=== PATIENT | female | born 1945 | race Caucasian/White ===

== ENCOUNTER 2016-09-24 02:56 | Emergency (ER) | payer OTHER, MEDICARE ==
[~2016-09-24] VITALS: Ht 167.6 cm; Wt 83.9 kg
[~2016-09-24 02:56] MED LIST: ASPI-1063 PO; INSU10VI4 SUBCUT; LOSA100T11 PO; METO25TA3 PO
[2016-09-24 03:01] VITALS: BP_SYST 142
[2016-09-24] MEDS ORDERED: TETRACAINE HCL 0.5% OPHTHALMIC DROPS 15 ML OP ONE (04:11)
[2016-09-24 05:27] VITALS: BP_SYST 135
== END 2016-09-24 05:27 | disposition home or self-care (01) ==
LOC: SED 02:56
DX: S05.01XA Injury of conjunctiva and corneal abrasion without foreign body, right eye, initial encounter (principal); E11.9 Type 2 diabetes mellitus without complications; I10 Essential (primary) hypertension; E78.00 Pure hypercholesterolemia, unspecified; Z86.73 Personal history of transient ischemic attack (TIA), and cerebral infarction without residual deficits; Z79.4 Long term (current) use of insulin; Z88.5 Allergy status to narcotic agent; Z88.1 Allergy status to other antibiotic agents; Z88.8 Allergy status to other drugs, medicaments and biological substances; X58.XXXA Exposure to other specified factors, initial encounter; Y93.89 Activity, other specified; Y92.89 Other specified places as the place of occurrence of the external cause; Y99.8 Other external cause status
CPT/HCPCS: 99283

== ENCOUNTER 2016-09-24 22:32 | Emergency (ER) | payer OTHER, MEDICARE ==
[~2016-09-24] VITALS: Ht 167.6 cm; Wt 83.9 kg
[2016-09-24 22:43] VITALS: BP_SYST 137
[2016-09-25 00:32] VITALS: BP_SYST 129
== END 2016-09-25 00:32 | disposition home or self-care (01) ==
LOC: SED 22:33
DX: S05.01XD Injury of conjunctiva and corneal abrasion without foreign body, right eye, subsequent encounter (principal); E11.9 Type 2 diabetes mellitus without complications; I10 Essential (primary) hypertension; E78.00 Pure hypercholesterolemia, unspecified; Z79.4 Long term (current) use of insulin; Z79.82 Long term (current) use of aspirin; Z88.1 Allergy status to other antibiotic agents; Z88.8 Allergy status to other drugs, medicaments and biological substances; W50.0XXD Accidental hit or strike by another person, subsequent encounter
CPT/HCPCS: 99283

== ENCOUNTER 2016-09-28 18:36 | Emergency (ER) | payer OTHER, MEDICARE ==
[~2016-09-28] VITALS: Ht 167.6 cm; Wt 81.6 kg
[2016-09-28 18:40] VITALS: BP_SYST 138
[2016-09-28 19:55] VITALS: BP_SYST 138
== END 2016-09-28 19:55 | disposition home or self-care (01) ==
LOC: SED 18:36
DX: S05.01XD Injury of conjunctiva and corneal abrasion without foreign body, right eye, subsequent encounter (principal); E78.00 Pure hypercholesterolemia, unspecified; E11.9 Type 2 diabetes mellitus without complications; I10 Essential (primary) hypertension; Z86.73 Personal history of transient ischemic attack (TIA), and cerebral infarction without residual deficits; Z79.4 Long term (current) use of insulin; Z79.82 Long term (current) use of aspirin; Z88.8 Allergy status to other drugs, medicaments and biological substances; Z88.5 Allergy status to narcotic agent; Z88.1 Allergy status to other antibiotic agents; W50.0XXD Accidental hit or strike by another person, subsequent encounter
CPT/HCPCS: 99283

== ENCOUNTER 2016-12-12 15:34 | Emergency (ER) | payer OTHER, MEDICARE ==
[~2016-12-12] VITALS: Ht 167.6 cm; Wt 81.6 kg
--- NOTE | 2016-12-12 15:50 | NUR ---
Pt to bed 6, placed in gown for evaluation
[2016-12-12 15:54] VITALS: BP_SYST 158
--- NOTE | 2016-12-12 16:00 | NUR ---
Patient to ED for evaluation of rlq abd pain and flank pain x 2 days. Patient able to ambulate to bed 6 with slow, steady gait. Awaiting evaluation by ER MD-will continue to observe and assess.
--- NOTE | 2016-12-12 16:05 | NUR ---
DR KRUEGER AT BEDSIDE TO EVALUATE PATIENT.
--- NOTE | 2016-12-12 16:20 | NUR ---
Ambulatory to restroom
[2016-12-12 16:25] LABS: BASOPHILS # (AUTO) 0.1 K/uL (0.0-0.2); BASOPHILS % (AUTO) 0.7 % (0.0-2.0); EOSINOPHILS # (AUTO) 0.3 K/uL (0.0-0.4); EOSINOPHILS % (AUTO) 3.6 % (0.0-4.0); HEMATOCRIT 39.4 % (36-48); HEMOGLOBIN 13.2 g/dL (12.0-16.0); LYMPHOCYTES % (AUTO) 26.4 % (20.5-51.5); MEAN CORPUSCULAR HEMOGLOBIN 30 pg (27-31); MEAN CORPUSCULAR HGB CONC 34 % (32-36); MEAN CORPUSCULAR VOLUME 89 fL (79.0-98.0); MONOCYTES # (AUTO) 0.6 K/uL (0.0-1.0); MONOCYTES % (AUTO) 8.1 % (1.7-9.3); NEUTROPHILS # (AUTO) 4.4 K/uL (1.8-7.7); NEUTROPHILS % (AUTO) 61.2 % (40.0-70.0); PLATELET COUNT (AUTO) 288 K/uL (130-430); RED BLOOD CELL COUNT(AUTO) 4.43 MIL/uL (4.2-6.2); RED CELL DISTRIBUTION WIDTH 12.6 % (9.0-15.0); WHITE BLOOD COUNT (AUTO) 7.4 K/uL (4.8-10.8)
[2016-12-12 16:30] LABS: PROTHROMBIN TIME 10.5 SECS (9.5-12.5)
[2016-12-12 16:38] LABS: BILIRUBIN,URINE NEGATIVE (NEGATIVE); BLOOD, URINE NEGATIVE (NEGATIVE); CLARITY/URINE CLEAR (CLEAR); COLOR,URINE STRAW (YELLOW); GLUCOSE,URINE NEGATIVE (NEGATIVE); KETONES,URINE NEGATIVE (NEGATIVE); LEUKOCYTE ESTERASE ,URINE NEGATIVE (NEGATIVE); NITRITE, URINE NEGATIVE (NEGATIVE); PROTEIN URINE NEGATIVE (NEGATIVE); UROBILINOGEN,URINE 0.2 (0.2-1.0)
[2016-12-12 16:42] LABS: ALBUMIN 3.2 g/dL (3.4-4.8); CALCIUM 8.6 mg/dL (8.4-11.0); CREATININE 0.82 mg/dL (0.55-1.30); TOTAL BILIRUBIN 0.4 mg/dL (0.0-1.0)
[2016-12-12] MEDS ORDERED: HYDROmorphone 1 MG INJ. 1 MG/ML AMPUL IVP ONE (16:45)
[2016-12-12] MEDS ORDERED: ONDANSETRON HCL 4 MG/2 ML VIAL IVP ONE (16:45)
--- NOTE | 2016-12-12 16:55 | NUR ---
Attempted to place IV without success, second RN at bedside to attempt IV placement. Will medicate once IV is placed.
--- NOTE | 2016-12-12 17:20 | NUR ---
Second RN unable to place IV-charge account clerk notified, and will attempt to place IV.
[2016-12-12] MEDS ORDERED: KETOROLAC TROMETHAMINE 30 MG VIAL IVP ONE (18:00)
--- NOTE | 2016-12-12 18:47 | NUR ---
Dr Lincoln at bedside to re-evaluate patient.
[2016-12-12] MEDS ORDERED: MAGNESIUM CITRATE 300 ML ORAL SOLUTION PO ONE (19:00)
--- NOTE | 2016-12-12 19:15 | NUR ---
Patient given written and verbal discharge instructions and verbalizes understanding. ER MD discussed with patient the results and treatment provided. Patient in stable condition. ID arm band removed. IV catheter removed intact and dressing applied, no active bleeding. No RX given. Patient educated on pain management and to follow up with PMD. Pain Scale 3. Opportunity for questions provided and answered.
[2016-12-12 19:52] VITALS: BP_SYST 140
== END 2016-12-12 19:15 | disposition home or self-care (01) ==
LOC: SED 15:34
DX: K59.00 Constipation, unspecified (principal); E11.9 Type 2 diabetes mellitus without complications; I10 Essential (primary) hypertension; E78.00 Pure hypercholesterolemia, unspecified; Z86.73 Personal history of transient ischemic attack (TIA), and cerebral infarction without residual deficits; Z79.82 Long term (current) use of aspirin; Z88.5 Allergy status to narcotic agent; Z88.8 Allergy status to other drugs, medicaments and biological substances; Z79.4 Long term (current) use of insulin
CPT/HCPCS: 36415; 71010; 74176; 80053; 81003; 83605; 83690; 85025; 85610; 87040; 93005; 96374; 96375; 99285; J1170; J1885; J2405

== ENCOUNTER 2017-11-06 04:27 | Inpatient (IN) | payer OTHER, MEDICARE ==
[~2017-11-06] VITALS: Ht 170.2 cm; Wt 88.9 kg
[~2017-11-06 04:27] MED LIST changes: -ASPI-1063 PO; +ASPI-1153 PO; -LOSA100T11 PO; +LOSA100T3 PO
--- NOTE | 2017-11-06 04:32 | NUR ---
Patient to ER bed 7 to gown for evaluation. Side rails up.
--- NOTE | 2017-11-06 04:34 | NUR ---
Patient ambulatory to ED and assisted to wheelchair with c/o subternal chest pain x 3 hours. Reports sharp non-radiating pain that has not been relieved with rest. +SOB. Patient speaking full sentences. No increased work of breathing. +N; -V/D. Patient appears in acute distress. Afebrile. Patient A/O x 4. Family at bedside.
[2017-11-06 04:35] VITALS: BP_SYST 139
--- NOTE | 2017-11-06 04:40 | NUR ---
ER Dr. Wheeler at bedside examining patient.
[2017-11-06] MEDS ORDERED: HYDROmorphone 1 MG INJ. 1 MG/ML AMPUL IVP ONE (05:00)
[2017-11-06] MEDS ORDERED: ASPIRIN 325 MG TABLET (ECOTRIN) PO ONE (05:00)
[2017-11-06] MEDS ORDERED: NITROGLYCERIN 0.3 MG/HR TD ONE (05:00)
[2017-11-06] MEDS ORDERED: ASPIRIN 325 MG TABLET PO ONE (05:00)
--- NOTE | 2017-11-06 05:00 | NUR ---
# 22 gauge angiocath placed to left upper arm. Use of asceptic technique. Opsite placed over site. Blood return noted. Blood for lab drawn from site. Flushed with 10 cc of normal saline. No evidence of infiltration noted. Patient tolerated well.
[2017-11-06] MEDS ORDERED: INSU100V9 SQ (05:04)
[2017-11-06] MEDS ORDERED: INSU100V SQ (05:04)
--- NOTE | 2017-11-06 05:04 | NUR ---
Medication reconciliation completed with information provided by patient. Any prior medication reconciliation on file was reviewed and corrected.
[2017-11-06] MEDS ORDERED: NITROGLYCERIN 1 INCH (GM) OINT. TP ONE (05:15)
[2017-11-06 05:16] LABS: BASOPHILS # (AUTO) 0.1 K/uL (0.0-0.2); BASOPHILS % (AUTO) 1.4 % (0.0-2.0); EOSINOPHILS # (AUTO) 0.3 K/uL (0.0-0.4); HEMATOCRIT 38.8 % (36-48); HEMOGLOBIN 13.2 g/dL (12.0-16.0); LYMPHOCYTES # (AUTO) 1.8 K/uL (1.0-5.5); LYMPHOCYTES % (AUTO) 23.7 % (20.5-51.5); MEAN CORPUSCULAR HEMOGLOBIN 31 pg (27-31); MEAN CORPUSCULAR HGB CONC 34 % (32-36); MEAN CORPUSCULAR VOLUME 90 fL (79.0-98.0); MONOCYTES # (AUTO) 0.5 K/uL (0.0-1.0); NEUTROPHILS # (AUTO) 4.9 K/uL (1.8-7.7); NEUTROPHILS % (AUTO) 63.9 % (40.0-70.0); PLATELET COUNT (AUTO) 310 K/uL (130-430); RED CELL DISTRIBUTION WIDTH 12.3 % (9.0-15.0); WHITE BLOOD COUNT (AUTO) 7.6 K/uL (4.8-10.8)
[2017-11-06] MEDS ORDERED: NITROGLYCERIN 1 INCH (GM) OINT. ONE (05:16)
--- NOTE | 2017-11-06 05:30 | NUR ---
Patient is calmly resting at this time. Patient states mild pain is present to chest but states "I feel better from before". No signs of distress noted at this time. Will continue to monitor the patient.
[2017-11-06 05:32] LABS: ANION GAP 7 (5-15); CALCIUM 9.1 mg/dL (8.4-11.0); CHLORIDE 103 mmol/L (98-107); GLUCOSE 173 mg/dL (70-99); SODIUM SERUM 137 mmol/L (136-145); UREA NITROGEN, BLOOD 12 mg/dL (8-21)
[2017-11-06 05:36] LABS: ALANINE AMINOTRANSFERASE 32 U/L (12-78); ALBUMIN 3.7 g/dL (3.4-4.8); ASPARTATE AMINOTRANSFERASE 25 U/L (10-37); TOTAL BILIRUBIN 0.3 mg/dL (0.0-1.0)
[2017-11-06] MEDS ORDERED: NITROGLYCERIN 0.4 MG TAB.SUBL SL PRN ×2 (06:15→08:30)
--- NOTE | 2017-11-06 06:18 | NUR ---
Patient will be admitted to care of Dr. Ruano. Admitted to tele unit. Will go to room 111A. Belongings list completed. Summary report printed. Report given to Sunita AWAN at bedside.
--- NOTE | 2017-11-06 06:24 | NUR ---
ADMISSION: The patient, FOSTER ANDERSON, 72 y/o, F admitted by MAGALY MENDOZA MD, was given written information regarding hospital policies, unit procedures and contact persons. Valuables were checked and pt was oriented to her room and surrounding.
--- NOTE | 2017-11-06 06:30 | NUR ---
CONSULTATION PAGED/CALLED Reason for Consultation: [] CHEST PAIN Person Who was Notified: [] RAFY Consulting Physician: [] DR SWARTZ Archivist Specialty: [] CARDIOLOGY Ordering Physician: [] DR Matthew MENDOZA
[2017-11-06 06:34] VITALS: BP_SYST 143
--- NOTE | 2017-11-06 07:25 | NUR ---
Report Bedside report was given to day shift nurse.
--- NOTE | 2017-11-06 07:40 | NUR ---
INITIAL NOTE RECEIVED PT IN BED, NO S/S OF DISTRESS OR SOB NOTED, PT HAS NO C/O PAIN AT THIS TIME, PT IN STABLE CONDITION, PT AAOX4, VERBAL, PT HAS AN IV CATHETER, PATENT, NO SIGNS OF INFECTION OR INFILTRATION NOTED, SALINE LOCK, BED AT LOWEST POSITION, CALL LIGHT WITHIN REACH, WILL CONTINUE TO MONITOR PT FOR ANY CHANGES, FALL AND SAFETY PRECAUTIONS IN PLACE. PT HAS NO C/O CHEST PAIN AT THIS TIME.
[2017-11-06 07:42] VITALS: BP_SYST 130
--- NOTE | 2017-11-06 07:43 | NUR ---
CALL DR KELLY NICK TO NOTIFY THAT PT IS HAVING PAIN AND NO PAIN MEDICATIONS ARE ORDERED, AWAITING CALL BACK. Addendum: 11/06/17 at 0811 by Carmen Mcginnis RN CALLED BACK AND STATED HE WILL COME IN AND SEE PT AND WRITE ORDERS
[2017-11-06] MEDS ORDERED: KETOROLAC TROMETHAMINE 15 MG VIAL IM ONE (08:30)
[2017-11-06] MEDS ORDERED: INSULIN REGULAR, HUMAN 100 UNITS/ML, 10 ML VIAL (novoLIN R) SUBCUT PRN (08:30)
[2017-11-06] MEDS ORDERED: KETOROLAC TROMETHAMINE 15 MG VIAL IVP PRN (08:30)
[2017-11-06] MEDS ORDERED: ALPRAZolam 0.25 MG TABLET PO PRN (08:45)
[2017-11-06] MEDS ORDERED: INSULIN ASPART 100 UNITS/ML, 10 ML VIAL SQ SCH (09:00)
[2017-11-06] MEDS ORDERED: COMMUNICATION ORDER XX ONE (09:15)
[2017-11-06] MEDS: ASPIRIN 81 MG TABLET(ECOTRIN) PO SCH (09:19)
[2017-11-06] MEDS: ENOXAPARIN SODIUM 40 MG/0.4 ML SYRINGE SUBCUT SCH (09:23)
[2017-11-06] MEDS ORDERED: KETOROLAC TROMETHAMINE 15 MG VIAL IVP ONE (09:30)
--- NOTE | 2017-11-06 10:30 | NUR ---
ROUNDS PT IN BED, NO S/S OF DISTRESS OR SOB NOTED, PT HAS NO C/O PAIN AT THIS TIME, PT IN STABLE CONDITION, PT TALKING TO FAMILY AT BEDSIDE, WILL CONTINUE TO MONITOR PT FOR ANY CHANGES.
--- NOTE | 2017-11-06 11:21 | NUR ---
NUMBNESS PT C/O NUMBNESS TO LEFT HAND AND ARM, PT STATED THAT SHE FEELS LIKE THIS ON AND OFF FOR A FEW MONTHS NOW, BILATERAL STRONG DIRECTOR OF STUDENT AFFAIRS, CAPILLARY REFILL LESS THAN 3 SECONDS, PULSE PALPABLE ON LEFT HAND, RADIAL, ABLE TO MOVE LEFT HAND AND ARM, SENSATION PRESENT, ABLE TO MOVE FINGERS. DR MENDOZA PAGED TO MAKE HIM AWARE, AWAITING CALL BACK. NO OTHER NUMBNESS NOTED, NO FACIAL NUMBNESS NOTED. NO FACIAL DROPPING. Addendum: 11/06/17 at 1134 by Carmen Mcginnis RN PT C/O HEADACHE, 11/06, BP 165/75, 75. Addendum: 11/06/17 at 1219 by Carmen Mcginnis RN MD REPAGED TO NOTIFY HIM ABOUT PATIENT'S CONDITION, AWAITING CALL BACK
[2017-11-06] MEDS: INSULIN LISPRO SUBCUT SCH ×2 (11:30→17:00)
--- NOTE | 2017-11-06 12:22 | NUR ---
ROUNDS PT IN BED, NO S/S OF DISTRESS OR SOB NOTED, PT IN STABLE CONDITION, PT TALKING TO FAMILY AT BEDSIDE. WILL CONTINUE TO MONITOR PT FOR ANY CHANGES. PT STATED HER NUMBNESS HAS GONE AWAY, BUT STILL HAS PAIN, AWAITING CALL BACK FROM MD.
[2017-11-06 12:35] VITALS: BP_SYST 165
--- NOTE | 2017-11-06 13:15 | NUR ---
MD CALL DR KELLY NICK, AWAITING CALL BACK TO NOTIFY HIM OF PATIENT'S CONDITION.
--- NOTE | 2017-11-06 13:38 | NUR ---
ATTENDING MD DR MENDOZA, WAS CALLED AGAIN RE: PT IS ALLERGIC TO MORPHINE. ASKING FOR ANOTHER PAIN MED. SPOKE TO RON
--- NOTE | 2017-11-06 13:38 | NUR ---
CALL BACK DR MENDOZA CALLED BACK PER TO GIVE HER TORADOL AND CALL DR SWARTZ TO NOTIFY HIM. Addendum: 11/06/17 at 1350 by Carmen Mcginnis RN SPOKE WITH DR SWARTZ AND NOTIFIED HIM THAT PT C/O NUMBNESS TO LEFT HAND AND ARM, PT STATED THAT SHE FEELS LIKE THIS ON AND OFF FOR A FEW MONTHS NOW, BILATERAL STRONG HAND NAILER, CAPILLARY REFILL LESS THAN 3 SECONDS, PULSE PALPABLE ON LEFT HAND, RADIAL, ABLE TO MOVE LEFT HAND AND ARM, SENSATION PRESENT, ABLE TO MOVE FINGERS. NO OTHER NUMBNESS NOTED, NO FACIAL NUMBNESS NOTED. NO FACIAL DROPPING. NEW ORDERS FOR PAIN MEDICATIONS GIVEN.
[2017-11-06] MEDS: traMADol HCL HCL 50 MG TABLET (ULTRAM) PO PRN (14:00)
--- NOTE | 2017-11-06 14:10 | NUR ---
ROUNDS PT IN BED SLEEPING WITH EYES CLOSED, NO S/S OF DISTRESS OR SOB NOTED, NO FACIAL GRIMACING NOTED FOR PAIN, PT IN STABLE CONDITION, WILL CONTINUE TO MONITOR PT FOR ANY CHANGES.
--- NOTE | 2017-11-06 15:45 | NUR ---
ROUNDS DR KELLY SOMERS, MADE AWARE THAT PT IS STILL COMPLAINING OF PAIN IN MIDDLE OF CHEST AND HEAD, MD GAVE NEW ORDERS FOR PAIN MANAGEMENT.
[2017-11-06] MEDS: HYDROmorphone 2 MG/ML VIAL IVP PRN (15:55)
--- NOTE | 2017-11-06 16:20 | NUR ---
ROUNDS PT IN BED, NO S/S OF DISTRESS OR SOB NOTED, PT HAS NO C/O PAIN AT THIS TIME, PT IN STABLE CONDITION, PT TALKING TO FAMILY AT BEDSIDE, WILL CONTINUE TO MONITOR PT FOR ANY CHANGES. PT HAS NO MORE PAIN, NO NUMBNESS OR TINGLING ON LEFT ARM ANYMORE.
[2017-11-06 16:29] VITALS: BP_SYST 132
--- NOTE | 2017-11-06 18:29 | NUR ---
CLOSING NOTE PT IN BED, NO S/S OF DISTRESS OR SOB NOTED, PT HAS NO C/O PAIN AT THIS TIME, PT IN STABLE CONDITION, PT AAOX4, VERBAL, PT HAS AN IV CATHETER, PATENT, NO SIGNS OF INFECTION OR INFILTRATION NOTED, SALINE LOCK, BED AT LOWEST POSITION, CALL LIGHT WITHIN REACH, WILL ENDORSE CARE OF PT TO INCOMING NURSE, FALL AND SAFETY PRECAUTIONS IN PLACE. PT HAS NO C/O CHEST PAIN AT THIS TIME. PT HAS NO NUMBNESS OR TINGLING ON LEFT ARM ANYMORE, ABLE TO MOVE FINGERS, CAPILLARY REFILL LESS THAN 3 SECONDS, PULSE PALPABLE, SENSATION PRESENT, NO PARALYSIS OR FACIAL DROP NOTED ON EITHER SIDE.
--- NOTE | 2017-11-06 19:50 | NUR ---
ROUNDS PATIENT IN BED, A/A/OX4, VITALS STABLE, DENIES ANY PAIN AND DISCOMFORT AT THIS TIME. ASSESSMENT DONE AND DOCUMENTED. SEE FLOWSHEET. NEEDS ATTENDED TO. SAFETY AND FALL PRECAUTION MEASURES IN PLACED. BED IN LOW AND LOCKED POSITION. CALL LIGHT PLACED WITHIN REACH.
[2017-11-06 20:00] VITALS: BP_SYST 156
[2017-11-06] MEDS ORDERED: LANTUS SUBCUT SCH (21:00)
--- NOTE | 2017-11-06 21:16 | NUR ---
MEDICATION DUE MEDICATIONS GIVEN ORDERED, TOLERATED WELL. WILL CONTINUE TO MONITOR.
[2017-11-07] VITALS: BP_SYST 146
--- NOTE | 2017-11-07 00:15 | NUR ---
ROUNDS PATIENT ASLEEP, NO SOB NOR PAIN AND DISCOMFORT NOTED, VITALS STABLE. WILL CONTINUE TO MONITOR.
[2017-11-07 00:55] LABS: THYROID STIMULATING HORMONE 1.29 uIu/mL (0.34-4.82)
--- NOTE | 2017-11-07 02:35 | NUR ---
PATIENT RESTING: Patient resting quietly. No acute distress noted. Vital signs within normal range.
--- NOTE | 2017-11-07 04:12 | NUR ---
ROUNDS PATIENT ASLEEP, NO SOB NOTED, RESPIRATIONS EVEN AND UNLABORED, VITALS STABLE. WILL CONTINUE TO MONITOR.
[2017-11-07] MEDS: traMADol HCL HCL 50 MG TABLET (ULTRAM) PO PRN (06:28)
[2017-11-07] MEDS: INSULIN LISPRO SUBCUT SCH (06:30)
--- NOTE | 2017-11-07 06:41 | NUR ---
CLOSING NOTES PATIENT AWAKE, VITALS STABLE, ACCU CHECK DONE WITH BLOOD SUGAR OF 171. PATIENT REFUSED SLIDING SCALE WITH REGULAR INSULIN AND ONLY WANTS HER SCHEDULED HUMALOG 14 UNITS SUBCU BEFORE MEALS. ALL NEEDS ATTENDED TO. SAFETY AND FALL PRECAUTION MEASURES MAINTAINED. CALL LIGHT PLACED WITHIN REACH. AT THE BEDSIDE.
--- NOTE | 2017-11-07 07:40 | NUR ---
opening note pt ambulated to restroom at this time. at bedside. pt denies any chest pain- but stated she has back pain 10/ iv to left upper arm saline locked noted- patent. pt reoriented to call light use, encouraged to call for help. bed alarm back in place, with bed in the lowest position. safety maintained.
[2017-11-07 08:00] VITALS: BP_SYST 134
[2017-11-07] MEDS: HYDROmorphone 2 MG/ML VIAL IVP PRN (08:27)
[2017-11-07] MEDS: ASPIRIN 81 MG TABLET(ECOTRIN) PO SCH (08:27)
[2017-11-07] MEDS: ENOXAPARIN SODIUM 40 MG/0.4 ML SYRINGE SUBCUT SCH (08:30)
--- NOTE | 2017-11-07 08:32 | NUR ---
med pass pt complained of 10/10 back pain. subq lovenox given as well. aspirin po given as well. safety maintained. no distress noted.
[2017-11-07 11:14] VITALS: BP_SYST 134
--- NOTE | 2017-11-07 11:25 | NUR ---
pt administered her own humolog at this time. safety maintained blood sugar checked- 115 no coverage needed
--- NOTE | 2017-11-07 11:35 | NUR ---
D/C Patient Patient given medication reconciliation form and D/C instructions. Exit Care provided. Patient verbalized understanding. MD discussed with patient the results and treatment provided. Ambulatory with steady gait for discharge to home. Patient in stable condition, ID band removed. IV catheter removed, intact and dressing applied, no active bleeding. pt has an appointment with patient resource coordinator thursday. Patient educated on pain management. All belongings sent with patient.
--- NOTE | 2017-11-09 13:30 | NUR ---
Discharge Follow Up Phone Call: TUBE AND MANIFOLD BUILDER called pt ([phone]) and pt's dtr, Debi, answered the phone. Pt's dtr states that pt is doing well; there are no questions regarding discharge or medication instructions; pt attended Social Insurance Adviser follow up appointment today; pt checks her blood sugar as directed by PCP. Pt's dtr did not express any other needs or concerns and denied the need for additional follow up at this time. No further follow up phone calls required at this time.
== END 2017-11-07 11:35 | disposition home or self-care (01) | DRG 206 ==
LOC: SED 04:27 → STU 06:06
PROVIDERS: ADMIT Family Medicine; ATTEND Family Medicine
DX: M94.0 Chondrocostal junction syndrome [Tietze] (principal); E11.9 Type 2 diabetes mellitus without complications; I10 Essential (primary) hypertension; I35.0 Nonrheumatic aortic (valve) stenosis; F41.8 Other specified anxiety disorders; E78.00 Pure hypercholesterolemia, unspecified; E89.0 Postprocedural hypothyroidism; M19.90 Unspecified osteoarthritis, unspecified site; Z79.4 Long term (current) use of insulin; Z83.3 Family history of diabetes mellitus; Z85.3 Personal history of malignant neoplasm of breast; Z85.850 Personal history of malignant neoplasm of thyroid; Z90.12 Acquired absence of left breast and nipple; Z88.1 Allergy status to other antibiotic agents; Z88.5 Allergy status to narcotic agent; Z88.8 Allergy status to other drugs, medicaments and biological substances; Z90.710 Acquired absence of both cervix and uterus; Z79.899 Other long term (current) drug therapy; Z79.82 Long term (current) use of aspirin
CPT/HCPCS: 36415; 71045; 80053; 80061; 82962; 84443-TC; 84484; 85025; 85610-TC; 93005; 93306; 96374; 96375; 99285; J1170; J1650; J1815; J1885

== ENCOUNTER 2018-01-08 02:24 | Emergency (ER) | payer OTHER, MEDICARE ==
[~2018-01-08] VITALS: Ht 170.2 cm; Wt 83.9 kg
[~2018-01-08 02:24] MED LIST changes: +INSU100V SQ; +INSU100V9 SQ; -INSU10VI4 SUBCUT; -LOSA100T3 PO; -METO25TA3 PO
[2018-01-08 02:37] VITALS: BP_SYST 144
[2018-01-08 02:44] LABS: BILIRUBIN,URINE NEGATIVE (NEGATIVE); BLOOD, URINE NEGATIVE (NEGATIVE); COLOR,URINE YELLOW (YELLOW); GLUCOSE,URINE 2+ (NEGATIVE); KETONES,URINE NEGATIVE (NEGATIVE); LEUKOCYTE ESTERASE ,URINE 2+ (NEGATIVE); NITRITE, URINE NEGATIVE (NEGATIVE); PROTEIN URINE NEGATIVE (NEGATIVE); UROBILINOGEN,URINE 0.2 (0.2-1.0)
[2018-01-08 02:47] LABS: CLARITY/URINE SLIGHTLY HAZY (CLEAR)
[2018-01-08] MEDS ORDERED: NACL 0.9% 1,000 ML IV ONE ×2 (02:50→02:57)
[2018-01-08] MEDS ORDERED: KETOROLAC TROMETHAMINE 30 MG VIAL IVP ONE (03:00)
[2018-01-08] MEDS ORDERED: fentaNYL CITRATE/PF 100 MCG/2 ML AMP IVP ONE (03:00)
[2018-01-08] MEDS ORDERED: DIPHENHYDRAMINE INJ 50 MG/ML VIAL IVP ONE (03:00)
[2018-01-08] MEDS ORDERED: ONDANSETRON HCL 4 MG/2 ML VIAL IVP ONE (03:00)
[2018-01-08 03:13] LABS: BASOPHILS # (AUTO) 0.1 K/uL (0.0-0.2); BASOPHILS % (AUTO) 1.3 % (0.0-2.0); EOSINOPHILS # (AUTO) 0.4 K/uL (0.0-0.4); EOSINOPHILS % (AUTO) 3.9 % (0.0-4.0); HEMATOCRIT 40.4 % (36-48); HEMOGLOBIN 13.4 g/dL (12.0-16.0); LYMPHOCYTES # (AUTO) 2.7 K/uL (1.0-5.5); LYMPHOCYTES % (AUTO) 26.2 % (20.5-51.5); MEAN CORPUSCULAR HEMOGLOBIN 30 pg (27-31); MEAN CORPUSCULAR HGB CONC 33 % (32-36); MEAN CORPUSCULAR VOLUME 92 fL (79.0-98.0); MONOCYTES # (AUTO) 0.7 K/uL (0.0-1.0); MONOCYTES % (AUTO) 6.8 % (1.7-9.3); NEUTROPHILS # (AUTO) 6.5 K/uL (1.8-7.7); NEUTROPHILS % (AUTO) 61.8 % (40.0-70.0); PLATELET COUNT (AUTO) 380 K/uL (130-430); RED BLOOD CELL COUNT(AUTO) 4.42 MIL/uL (4.2-6.2); RED CELL DISTRIBUTION WIDTH 11.8 % (9.0-15.0); WHITE BLOOD COUNT (AUTO) 10.4 K/uL (4.8-10.8)
[2018-01-08 03:15] LABS: ANION GAP 12 (5-15); CALCIUM 9.4 mg/dL (8.4-11.0); CHLORIDE 97 mmol/L (98-107); CREATININE 1.02 mg/dL (0.55-1.30); GLUCOSE 323 mg/dL (70-99); POTASSIUM 4.8 mmol/L (3.5-5.1); SODIUM SERUM 134 mmol/L (136-145); UREA NITROGEN, BLOOD 17 mg/dL (8-21)
[2018-01-08 03:21] LABS: ALANINE AMINOTRANSFERASE 29 U/L (12-78); ALBUMIN 3.6 g/dL (3.4-4.8); ASPARTATE AMINOTRANSFERASE 20 U/L (10-37); TOTAL BILIRUBIN 0.4 mg/dL (0.0-1.0)
[2018-01-08 03:25] LABS: BACTERIA,URINE FEW /HPF (None Seen); RBC,URINE 0-3 /HPF (0-3)
[2018-01-08] MEDS ORDERED: cefTRIAXone 1 GM IVPB PREMIX 50 ML IV ONE (04:00)
[2018-01-08 04:40] VITALS: BP_SYST 136
== END 2018-01-08 04:40 | disposition home or self-care (01) ==
LOC: SED 02:24
DX: N39.0 Urinary tract infection, site not specified (principal); I10 Essential (primary) hypertension; E11.9 Type 2 diabetes mellitus without complications; E78.00 Pure hypercholesterolemia, unspecified; Z90.710 Acquired absence of both cervix and uterus; Z98.890 Other specified postprocedural states; Z88.1 Allergy status to other antibiotic agents; Z88.5 Allergy status to narcotic agent; Z88.8 Allergy status to other drugs, medicaments and biological substances; Z79.4 Long term (current) use of insulin
CPT/HCPCS: 36415; 74176; 80053; 81000; 83605; 85025; 87040; 87086; 96365; 96375; 99285; J0696; J1200; J1885; J2405; J3010; J7030; 96361

== ENCOUNTER 2018-01-10 01:11 | Emergency (ER) | payer OTHER, MEDICARE ==
[~2018-01-10] VITALS: Ht 167.6 cm; Wt 83.9 kg
[2018-01-10 01:13] VITALS: BP_SYST 145
--- NOTE | 2018-01-10 01:16 | NUR ---
Placed in room 7 . Placed on surveillance monitor, blood pressure machine and pulse oximeter. To gown for exam. Side rails up. Report given to RN.
[2018-01-10] MEDS ORDERED: NS 1000 ML IV.SOLN IV ONE (01:45)
[2018-01-10] MEDS ORDERED: LEVOFLOXACIN 500 MG/D5W 100 ML IV ONE (01:45)
[2018-01-10] MEDS ORDERED: KETOROLAC TROMETHAMINE 30 MG VIAL IVP ONE (01:45)
--- NOTE | 2018-01-10 01:50 | NUR ---
ER Dr. Baker at bedside examining patient.
--- NOTE | 2018-01-10 01:55 | NUR ---
Patient A/O x 4 brought in by to ED to be evaluated for post mechanical fall. Pt c/o R sided head pain, 01/06. Pt states she lost her balance and fell on her head, pt denies losing consciousness, dizziness, N/V. Pt VSS. Safety precautions in place. No SOB or acute distress noted. Will continue to monitor.
--- NOTE | 2018-01-10 02:20 | NUR ---
Patient off unit to radiology.
[2018-01-10 02:22] LABS: BASOPHILS # (AUTO) 0.1 K/uL (0.0-0.2); BASOPHILS % (AUTO) 0.8 % (0.0-2.0); EOSINOPHILS # (AUTO) 0.3 K/uL (0.0-0.4); EOSINOPHILS % (AUTO) 3.8 % (0.0-4.0); HEMATOCRIT 38.9 % (36-48); HEMOGLOBIN 13.1 g/dL (12.0-16.0); LYMPHOCYTES # (AUTO) 2.2 K/uL (1.0-5.5); LYMPHOCYTES % (AUTO) 23.7 % (20.5-51.5); MEAN CORPUSCULAR HEMOGLOBIN 31 pg (27-31); MEAN CORPUSCULAR HGB CONC 34 % (32-36); MEAN CORPUSCULAR VOLUME 92 fL (79.0-98.0); MONOCYTES # (AUTO) 0.7 K/uL (0.0-1.0); MONOCYTES % (AUTO) 7.3 % (1.7-9.3); NEUTROPHILS # (AUTO) 5.9 K/uL (1.8-7.7); NEUTROPHILS % (AUTO) 64.4 % (40.0-70.0); PLATELET COUNT (AUTO) 359 K/uL (130-430); RED BLOOD CELL COUNT(AUTO) 4.25 MIL/uL (4.2-6.2); RED CELL DISTRIBUTION WIDTH 11.9 % (9.0-15.0); WHITE BLOOD COUNT (AUTO) 9.2 K/uL (4.8-10.8)
[2018-01-10 02:29] LABS: ANION GAP 10 (5-15); CALCIUM 9.6 mg/dL (8.4-11.0); CHLORIDE 98 mmol/L (98-107); CREATININE 0.91 mg/dL (0.55-1.30); GLUCOSE 385 mg/dL (70-99); POTASSIUM 4.2 mmol/L (3.5-5.1); SODIUM SERUM 134 mmol/L (136-145); UREA NITROGEN, BLOOD 11 mg/dL (8-21)
[2018-01-10 02:34] LABS: ALANINE AMINOTRANSFERASE 27 U/L (12-78); ALBUMIN 3.7 g/dL (3.4-4.8); ASPARTATE AMINOTRANSFERASE 20 U/L (10-37); TOTAL BILIRUBIN 0.5 mg/dL (0.0-1.0)
--- NOTE | 2018-01-10 02:35 | NUR ---
Patient back to unit.
[2018-01-10 02:39] LABS: PROTHROMBIN TIME 9.8 SECS (9.5-12.5)
[2018-01-10 02:45] LABS: BILIRUBIN,URINE NEGATIVE (NEGATIVE); BLOOD, URINE NEGATIVE (NEGATIVE); CLARITY/URINE CLEAR (CLEAR); COLOR,URINE YELLOW (YELLOW); GLUCOSE,URINE 3+ (NEGATIVE); KETONES,URINE NEGATIVE (NEGATIVE); LEUKOCYTE ESTERASE ,URINE TRACE (NEGATIVE); NITRITE, URINE NEGATIVE (NEGATIVE); PH,URINE 6.5 (5.0-8.0); PROTEIN URINE NEGATIVE (NEGATIVE); UROBILINOGEN,URINE 0.2 (0.2-1.0)
--- NOTE | 2018-01-10 02:50 | NUR ---
#24 gauge angiocath placed to R wrist. Use of asceptic technique. Opsite placed over site. Blood return noted. Flushed with 10 cc of normal saline. No evidence of infiltration noted. Patient tolerated well.
[2018-01-10 03:05] LABS: RBC,URINE 0-3 /HPF (0-3)
[2018-01-10 03:06] LABS: BACTERIA,URINE MODERATE /HPF (None Seen)
[2018-01-10 03:57] VITALS: BP_SYST 131
--- NOTE | 2018-01-10 03:57 | NUR ---
Patient given written and verbal discharge instructions and verbalizes understanding. ER MD discussed with patient the results and treatment provided. Patient in stable condition. ID arm band removed. IV catheter removed intact and dressing applied, no active bleeding. Rx of Tramadol, Ciprofloxacin given. Patient educated on pain management and to follow up with PMD. Pain Scale 1/10. Opportunity for questions provided and answered. Medication side effect fact sheet provided.
== END 2018-01-10 03:57 | disposition home or self-care (01) ==
LOC: SED 01:11
DX: S00.03XA Contusion of scalp, initial encounter (principal); E86.0 Dehydration; E11.65 Type 2 diabetes mellitus with hyperglycemia; N39.0 Urinary tract infection, site not specified; I10 Essential (primary) hypertension; E78.00 Pure hypercholesterolemia, unspecified; Z88.6 Allergy status to analgesic agent; Z88.5 Allergy status to narcotic agent; Z88.8 Allergy status to other drugs, medicaments and biological substances; Z79.4 Long term (current) use of insulin; W18.30XA Fall on same level, unspecified, initial encounter; Y93.89 Activity, other specified; Y92.003 Bedroom of unspecified non-institutional (private) residence as the place of occurrence of the external cause; Y99.8 Other external cause status
CPT/HCPCS: 36415; 70450; 71045; 80053; 81000; 83605; 84484; 85025; 85610; 85730; 87040; 87086; 93005; 96365; 96375; 99285; J1885; J1956; J7030

== ENCOUNTER 2018-01-13 10:50 | Inpatient (IN) | payer OTHER, MEDICARE ==
[~2018-01-13] VITALS: Ht 167.6 cm; Wt 81.6 kg
[2018-01-13 10:50] VITALS: BP_SYST 153
[2018-01-13] MEDS ORDERED: ONDANSETRON HCL 4 MG/2 ML VIAL IVP ONE ×2 (11:45→17:30)
[2018-01-13] MEDS ORDERED: NACL 0.9% 1,000 ML IV ONE (11:45)
[2018-01-13 12:07] LABS: BASOPHILS % (AUTO) 0.4 % (0.0-2.0); EOSINOPHILS # (AUTO) 0.5 K/uL (0.0-0.4); EOSINOPHILS % (AUTO) 4.4 % (0.0-4.0); HEMATOCRIT 39.6 % (36-48); LYMPHOCYTES # (AUTO) 1.3 K/uL (1.0-5.5); LYMPHOCYTES % (AUTO) 12.8 % (20.5-51.5); MEAN CORPUSCULAR HEMOGLOBIN 30 pg (27-31); MEAN CORPUSCULAR HGB CONC 33 % (32-36); MEAN CORPUSCULAR VOLUME 92 fL (79.0-98.0); MONOCYTES # (AUTO) 0.8 K/uL (0.0-1.0); MONOCYTES % (AUTO) 7.8 % (1.7-9.3); NEUTROPHILS # (AUTO) 7.9 K/uL (1.8-7.7); NEUTROPHILS % (AUTO) 74.6 % (40.0-70.0); PLATELET COUNT (AUTO) 326 K/uL (130-430); RED BLOOD CELL COUNT(AUTO) 4.32 MIL/uL (4.2-6.2); RED CELL DISTRIBUTION WIDTH 11.7 % (9.0-15.0); WHITE BLOOD COUNT (AUTO) 10.5 K/uL (4.8-10.8)
[2018-01-13 12:24] LABS: ANION GAP 12 (5-15); CALCIUM 9.5 mg/dL (8.4-11.0); CHLORIDE 96 mmol/L (98-107); CREATININE 3.39 mg/dL (0.55-1.30); GLUCOSE 233 mg/dL (70-99); POTASSIUM 4.3 mmol/L (3.5-5.1); SODIUM SERUM 135 mmol/L (136-145); UREA NITROGEN, BLOOD 30 mg/dL (8-21)
[2018-01-13 12:29] LABS: ALANINE AMINOTRANSFERASE 28 U/L (12-78); ALBUMIN 3.5 g/dL (3.4-4.8); ASPARTATE AMINOTRANSFERASE 24 U/L (10-37); TOTAL BILIRUBIN 0.4 mg/dL (0.0-1.0)
[2018-01-13 16:01] VITALS: BP_SYST 149
[2018-01-13] MEDS: NACL 0.9% 1,000 ML IV SCH (16:42)
[2018-01-13] MEDS: INSULIN REGULAR, HUMAN 100 UNITS/ML, 10 ML VIAL (novoLIN R) SUBCUT PRN (17:25)
[2018-01-13] MEDS ORDERED: METOCLOPRAMIDE HCL 10 MG/2 ML VIAL IVP PRN (17:30)
[2018-01-13] MEDS ORDERED: METOCLOPRAMIDE HCL 10 MG/2 ML VIAL IVP ONE (17:30)
[2018-01-13] MEDS ORDERED: PANTOPRAZOLE SODIUM 40 MG/VIAL (PROTONIX) IVP ONE (17:30)
[2018-01-13] MEDS ORDERED: ONDANSETRON HCL 4 MG/2 ML VIAL IVP PRN (17:30)
[2018-01-13] MEDS: PANTOPRAZOLE SODIUM 40 MG/VIAL (PROTONIX) IVP SCH (21:51)
[2018-01-13 23:40] VITALS: BP_SYST 119
[2018-01-14] MEDS: NACL 0.9% 1,000 ML IV SCH ×3 (02:38→17:35)
[2018-01-14 04:33] LABS: BILIRUBIN,URINE NEGATIVE (NEGATIVE); BLOOD, URINE NEGATIVE (NEGATIVE); CLARITY/URINE CLEAR (CLEAR); COLOR,URINE YELLOW (YELLOW); GLUCOSE,URINE NEGATIVE (NEGATIVE); KETONES,URINE NEGATIVE (NEGATIVE); LEUKOCYTE ESTERASE ,URINE TRACE (NEGATIVE); NITRITE, URINE NEGATIVE (NEGATIVE); PROTEIN URINE NEGATIVE (NEGATIVE); UROBILINOGEN,URINE 0.2 (0.2-1.0)
[2018-01-14 05:19] LABS: BACTERIA,URINE FEW /HPF (None Seen); MUCUS,URINE None Seen /LPF (None Seen); RBC,URINE 0-3 /HPF (0-3); YEAST,URINE None Seen /HPF (None Seen)
[2018-01-14 06:34] LABS: BASOPHILS # (AUTO) 0.1 K/uL (0.0-0.2); BASOPHILS % (AUTO) 0.6 % (0.0-2.0); EOSINOPHILS # (AUTO) 0.3 K/uL (0.0-0.4); EOSINOPHILS % (AUTO) 3.6 % (0.0-4.0); HEMATOCRIT 36.3 % (36-48); HEMOGLOBIN 12.4 g/dL (12.0-16.0); LYMPHOCYTES # (AUTO) 1.6 K/uL (1.0-5.5); LYMPHOCYTES % (AUTO) 16.8 % (20.5-51.5); MEAN CORPUSCULAR HEMOGLOBIN 31 pg (27-31); MEAN CORPUSCULAR HGB CONC 34 % (32-36); MEAN CORPUSCULAR VOLUME 92 fL (79.0-98.0); MONOCYTES # (AUTO) 0.6 K/uL (0.0-1.0); MONOCYTES % (AUTO) 6.6 % (1.7-9.3); NEUTROPHILS # (AUTO) 6.8 K/uL (1.8-7.7); NEUTROPHILS % (AUTO) 72.4 % (40.0-70.0); PLATELET COUNT (AUTO) 309 K/uL (130-430); RED BLOOD CELL COUNT(AUTO) 3.95 MIL/uL (4.2-6.2); RED CELL DISTRIBUTION WIDTH 11.8 % (9.0-15.0); WHITE BLOOD COUNT (AUTO) 9.4 K/uL (4.8-10.8)
[2018-01-14 07:07] LABS: ALANINE AMINOTRANSFERASE 22 U/L (12-78); ALBUMIN 2.8 g/dL (3.4-4.8); AMYLASE 64 U/L (0-100); ANION GAP 11 (5-15); ASPARTATE AMINOTRANSFERASE 26 U/L (10-37); CALCIUM 9.1 mg/dL (8.4-11.0); CHLORIDE 105 mmol/L (98-107); CREATININE 3.58 mg/dL (0.55-1.30); GLUCOSE 122 mg/dL (70-99); LIPASE 138 U/L (73-393); POTASSIUM 4.1 mmol/L (3.5-5.1); SODIUM SERUM 138 mmol/L (136-145); THYROID STIMULATING HORMONE 1.04 uIu/mL (0.34-4.82); TOTAL BILIRUBIN 0.3 mg/dL (0.0-1.0); UREA NITROGEN, BLOOD 30 mg/dL (8-21); URIC ACID 7.6 mg/dL (2.4-7.0)
[2018-01-14 08:00] VITALS: BP_SYST 145
[2018-01-14] MEDS: ASPIRIN 81 MG TABLET(ECOTRIN) PO SCH (09:12)
[2018-01-14] MEDS: PANTOPRAZOLE SODIUM 40 MG/VIAL (PROTONIX) IVP SCH ×2 (09:12→20:30)
[2018-01-14] MEDS: INSULIN REGULAR, HUMAN 100 UNITS/ML, 10 ML VIAL (novoLIN R) SUBCUT PRN (12:09)
[2018-01-14 12:15] VITALS: BP_SYST 140
[2018-01-14] MEDS ORDERED: DEXTROSE 50% JECT 50 ML DISP.SYRIN IVP PRN (13:45)
[2018-01-14 16:40] VITALS: BP_SYST 142
[2018-01-14] MEDS: INSULIN ASPART 100 UNITS/ML, 10 ML VIAL (NovoLOG) SUBCUT PRN ×2 (17:39→20:34)
[2018-01-14 20:00] VITALS: BP_SYST 147
[2018-01-15] MEDS: NACL 0.9% 1,000 ML IV SCH ×3 (00:20→22:06)
[2018-01-15 00:26] VITALS: BP_SYST 138
[2018-01-15] MEDS: INSULIN ASPART 100 UNITS/ML, 10 ML VIAL (NovoLOG) SUBCUT PRN ×4 (06:13→21:04)
[2018-01-15 08:14] VITALS: BP_SYST 164
[2018-01-15] MEDS: ASPIRIN 81 MG TABLET(ECOTRIN) PO SCH (09:43)
[2018-01-15 09:45] VITALS: BP_SYST 137
[2018-01-15 12:58] VITALS: BP_SYST 146
[2018-01-15] MEDS: PANTOPRAZOLE SODIUM 40 MG/VIAL (PROTONIX) IVP SCH ×2 (13:48→20:58)
[2018-01-15] MEDS ORDERED: NACL 0.9% 1,000 ML IV SCH (14:00)
[2018-01-15 14:49] LABS: ANION GAP 15 (5-15); CHLORIDE 105 mmol/L (98-107); CREATININE 2.29 mg/dL (0.55-1.30); GLUCOSE 199 mg/dL (70-99); POTASSIUM 4.2 mmol/L (3.5-5.1); SODIUM SERUM 140 mmol/L (136-145); UREA NITROGEN, BLOOD 25 mg/dL (8-21)
[2018-01-15 16:19] LABS: PROTHROMBIN TIME 9.8 SECS (9.5-12.5)
[2018-01-15 16:34] VITALS: BP_SYST 137
[2018-01-15 20:36] VITALS: BP_SYST 116
[2018-01-16 01:00] VITALS: BP_SYST 156
[2018-01-16 02:53] VITALS: BP_SYST 132
[2018-01-16] MEDS: ACETAMINOPHEN 325 MG TABLET PO PRN ×2 (03:09→08:54)
[2018-01-16 04:01] LABS: ANION GAP 13 (5-15); CALCIUM 8.6 mg/dL (8.4-11.0); CHLORIDE 106 mmol/L (98-107); CREATININE 1.62 mg/dL (0.55-1.30); GLUCOSE 197 mg/dL (70-99); POTASSIUM 3.9 mmol/L (3.5-5.1); SODIUM SERUM 141 mmol/L (136-145); UREA NITROGEN, BLOOD 17 mg/dL (8-21)
[2018-01-16] MEDS: INSULIN ASPART 100 UNITS/ML, 10 ML VIAL (NovoLOG) SUBCUT PRN ×2 (06:19→11:10)
[2018-01-16 07:20] VITALS: BP_SYST 178
[2018-01-16] MEDS: ASPIRIN 81 MG TABLET(ECOTRIN) PO SCH (08:53)
[2018-01-16] MEDS: PANTOPRAZOLE SODIUM 40 MG/VIAL (PROTONIX) IVP SCH (08:53)
[2018-01-16] MEDS ORDERED: guaiFENesin/DEXTROMETHORPHAN 118 ML PO SCH (11:30)
[2018-01-16 12:02] VITALS: BP_SYST 150
[2018-01-16] MEDS ORDERED: guaiFENesin/DEXTROMETHORPHAN 10 ML UDC PO SCH (12:08)
[2018-01-16 15:34] VITALS: BP_SYST 150
[2018-01-16 16:02] VITALS: BP_SYST 138
== END 2018-01-16 16:20 | disposition home health service (06) | DRG 391 ==
LOC: SED 10:50 → STU 15:19 → SMU 01-15 12:52
PROVIDERS: ADMIT Internal Medicine; ATTEND Internal Medicine
DX: K29.00 Acute gastritis without bleeding (principal); N17.0 Acute kidney failure with tubular necrosis; J20.8 Acute bronchitis due to other specified organisms; E11.22 Type 2 diabetes mellitus with diabetic chronic kidney disease; E78.5 Hyperlipidemia, unspecified; E86.0 Dehydration; I12.9 Hypertensive chronic kidney disease with stage 1 through stage 4 chronic kidney disease, or unspecified chronic kidney disease; E78.00 Pure hypercholesterolemia, unspecified; E11.65 Type 2 diabetes mellitus with hyperglycemia; K57.90 Diverticulosis of intestine, part unspecified, without perforation or abscess without bleeding; E66.3 Overweight; I25.10 Atherosclerotic heart disease of native coronary artery without angina pectoris; I35.0 Nonrheumatic aortic (valve) stenosis; N18.9 Chronic kidney disease, unspecified; N20.0 Calculus of kidney; Z79.4 Long term (current) use of insulin; Z85.3 Personal history of malignant neoplasm of breast; Z85.850 Personal history of malignant neoplasm of thyroid; Z87.442 Personal history of urinary calculi; Z88.1 Allergy status to other antibiotic agents; Z88.9 Allergy status to unspecified drugs, medicaments and biological substances; Z86.73 Personal history of transient ischemic attack (TIA), and cerebral infarction without residual deficits; Z68.29 Body mass index [BMI] 29.0-29.9, adult
CPT/HCPCS: 36415; 71045; 76700-TC; 80048; 80053; 81000-TC; 82150-TC; 82962; 83036; 83690-TC; 84443-TC; 84484; 84550-TC; 85025; 85610-TC; 85730-TC; 87086; 90656; 93005; 96361; 96374; 99285; C9113; J1815; J2405; J2765; J7030

== ENCOUNTER 2018-02-05 23:53 | Emergency (ER) | payer OTHER, MEDICARE ==
[~2018-02-05] VITALS: Ht 167.6 cm; Wt 83.5 kg
[2018-02-06 00:09] VITALS: BP_SYST 142
[2018-02-06] MEDS ORDERED: HYDROcodone/ACETAMIN 5-325 MG TAB (NORCO/ VICODIN) PO ONE (00:30)
[2018-02-06 01:30] VITALS: BP_SYST 134
== END 2018-02-06 01:30 | disposition home or self-care (01) ==
LOC: SED 23:53
DX: S62.326A Displaced fracture of shaft of fifth metacarpal bone, right hand, initial encounter for closed fracture (principal); E78.00 Pure hypercholesterolemia, unspecified; E11.9 Type 2 diabetes mellitus without complications; I10 Essential (primary) hypertension; Z86.73 Personal history of transient ischemic attack (TIA), and cerebral infarction without residual deficits; Z85.3 Personal history of malignant neoplasm of breast; Z88.6 Allergy status to analgesic agent; Z88.8 Allergy status to other drugs, medicaments and biological substances; Z79.82 Long term (current) use of aspirin; Z79.899 Other long term (current) drug therapy; W06.XXXA Fall from bed, initial encounter; Y93.89 Activity, other specified; Y92.89 Other specified places as the place of occurrence of the external cause; Y99.8 Other external cause status
CPT/HCPCS: 99284

== ENCOUNTER 2018-02-12 10:38 | Day surgery (SDC) | payer OTHER, MEDICARE ==
[2018-02-11 08:33] LABS: BASOPHILS # (AUTO) 0.1 K/uL (0.0-0.2); BASOPHILS % (AUTO) 0.7 % (0.0-2.0); EOSINOPHILS # (AUTO) 0.1 K/uL (0.0-0.4); EOSINOPHILS % (AUTO) 1.2 % (0.0-4.0); HEMATOCRIT 40.2 % (36-48); HEMOGLOBIN 13.2 g/dL (12.0-16.0); LYMPHOCYTES # (AUTO) 1.4 K/uL (1.0-5.5); LYMPHOCYTES % (AUTO) 17.6 % (20.5-51.5); MEAN CORPUSCULAR HEMOGLOBIN 30 pg (27-31); MEAN CORPUSCULAR HGB CONC 33 % (32-36); MEAN CORPUSCULAR VOLUME 92 fL (79.0-98.0); MONOCYTES # (AUTO) 0.5 K/uL (0.0-1.0); MONOCYTES % (AUTO) 5.8 % (1.7-9.3); NEUTROPHILS # (AUTO) 5.7 K/uL (1.8-7.7); NEUTROPHILS % (AUTO) 74.7 % (40.0-70.0); PLATELET COUNT (AUTO) 347 K/uL (130-430); RED BLOOD CELL COUNT(AUTO) 4.37 MIL/uL (4.2-6.2); RED CELL DISTRIBUTION WIDTH 11.9 % (9.0-15.0); WHITE BLOOD COUNT (AUTO) 7.8 K/uL (4.8-10.8)
[2018-02-11 08:37] LABS: ANION GAP 8 (5-15); BILIRUBIN,URINE NEGATIVE (NEGATIVE); BLOOD, URINE NEGATIVE (NEGATIVE); CALCIUM 9.6 mg/dL (8.4-11.0); CHLORIDE 99 mmol/L (98-107); CLARITY/URINE CLEAR (CLEAR); COLOR,URINE YELLOW (YELLOW); CREATININE 1.09 mg/dL (0.55-1.30); GLUCOSE 280 mg/dL (70-99); GLUCOSE,URINE 1+ (NEGATIVE); KETONES,URINE NEGATIVE (NEGATIVE); LEUKOCYTE ESTERASE ,URINE NEGATIVE (NEGATIVE); NITRITE, URINE NEGATIVE (NEGATIVE); PH,URINE 6.5 (5.0-8.0); POTASSIUM 4.6 mmol/L (3.5-5.1); PROTEIN URINE NEGATIVE (NEGATIVE); SODIUM SERUM 132 mmol/L (136-145); UREA NITROGEN, BLOOD 19 mg/dL (8-21); UROBILINOGEN,URINE 0.2 (0.2-1.0)
[~2018-02-12] VITALS: Ht 167.6 cm; Wt 82.1 kg
[~2018-02-12 10:38] MED LIST changes: +LEVOFLOXACIN 500 MG/D5W 100 ML IV ONE
[2018-02-12] MEDS ORDERED: CLINDAMYCIN 600 MG in D5W 50 ML IV ONE (12:00)
[2018-02-12] MEDS ORDERED: fentaNYL CITRATE/PF 100 MCG/2 ML AMP IVP PRN ×2 (14:30)
[2018-02-12] MEDS ORDERED: ONDANSETRON HCL 4 MG/2 ML VIAL IVP PRN (14:30)
[2018-02-12] MEDS ORDERED: fentaNYL CITRATE/PF 100 MCG/2 ML AMP ONE ×2 (15:40→16:17)
[2018-02-12] MEDS ORDERED: BUPIVACAINE /PF 0.5% 30 ML VIAL ONE (15:40)
[2018-02-12] MEDS ORDERED: MIDAZOLAM HCL 5 MG/ML VIAL (VERSED) IV ONE (15:40)
[2018-02-12] MEDS ORDERED: NS IRRIG SOLN 1000 ML IR ONE (15:40)
[2018-02-12] MEDS ORDERED: PROPOFOL 200MG/ 20ML VIAL (DIPRIVAN) IV ONE (15:40)
[2018-02-12] MEDS ORDERED: KETOROLAC TROMETHAMINE 30 MG VIAL ONE (15:40)
[2018-02-12] MEDS ORDERED: LR 1,000 ML IV.SOLN IV ONE (15:40)
[2018-02-12] MEDS ORDERED: LR 1,000 ML IV SCH (15:56)
[2018-02-12] MEDS ORDERED: DIPHENHYDRAMINE HCL 25 MG CAPSULE PO PRN (16:00)
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
[2018-02-12 16:43] VITALS: BP_SYST 140
[2018-02-12] MEDS ORDERED: HYDROcodone/ACETAMIN 5-325 MG TAB (NORCO/ VICODIN) ONE (17:10)
[2018-02-12] MEDS ORDERED: HYDROcodone/ACETAMIN 5-325 MG TAB (NORCO/ VICODIN) PO PRN (17:30)
[2018-02-12] MEDS ORDERED: HYDROcodone/ACETAMIN 10-325 MG TAB PO PRN (17:30)
== END 2018-02-12 19:00 | disposition home or self-care (01) ==
LOC: SDS 10:38 → SMU 10:38 → SDS 19:00
PROVIDERS: ATTEND Orthopaedic Surgery
DX: S62.326A Displaced fracture of shaft of fifth metacarpal bone, right hand, initial encounter for closed fracture (principal); W06.XXXA Fall from bed, initial encounter; Y93.9 Activity, unspecified; Y92.89 Other specified places as the place of occurrence of the external cause; Y99.9 Unspecified external cause status; Z85.3 Personal history of malignant neoplasm of breast; E11.9 Type 2 diabetes mellitus without complications; Z88.8 Allergy status to other drugs, medicaments and biological substances; Z79.899 Other long term (current) drug therapy; Z79.84 Long term (current) use of oral hypoglycemic drugs; Z79.4 Long term (current) use of insulin; Z68.31 Body mass index [BMI] 31.0-31.9, adult; Z98.890 Other specified postprocedural states; I10 Essential (primary) hypertension
CPT/HCPCS: 26615; 36415; 71046; 76000; 80048; 81003; 82948; 82962; 85025; 93005; 93306; C1713; J1885; J2250; J2704; J3010; J3490 ×2; J7060; J7120; J1956

== ENCOUNTER 2018-03-21 16:24 | Emergency (ER) | payer OTHER, MEDICARE ==
[~2018-03-21] VITALS: Ht 167.6 cm; Wt 81.6 kg
[~2018-03-21 16:24] MED LIST changes: -LEVOFLOXACIN 500 MG/D5W 100 ML IV ONE
[2018-03-21 16:28] VITALS: BP_SYST 157
[2018-03-21] MEDS ORDERED: NACL 0.9% 1,000 ML IV ONE (17:13)
[2018-03-21] MEDS ORDERED: KETOROLAC TROMETHAMINE 30 MG VIAL IVP ONE (17:15)
[2018-03-21 18:16] LABS: ANION GAP 9 (5-15); BASOPHILS # (AUTO) 0.1 K/uL (0.0-0.2); BASOPHILS % (AUTO) 1.2 % (0.0-2.0); CALCIUM 9.3 mg/dL (8.4-11.0); CHLORIDE 99 mmol/L (98-107); CREATININE 1.14 mg/dL (0.55-1.30); EOSINOPHILS # (AUTO) 0.2 K/uL (0.0-0.4); EOSINOPHILS % (AUTO) 2.3 % (0.0-4.0); GLUCOSE 360 mg/dL (70-99); HEMATOCRIT 38.9 % (36-48); HEMOGLOBIN 12.9 g/dL (12.0-16.0); LYMPHOCYTES # (AUTO) 1.7 K/uL (1.0-5.5); LYMPHOCYTES % (AUTO) 18.9 % (20.5-51.5); MEAN CORPUSCULAR HEMOGLOBIN 31 pg (27-31); MEAN CORPUSCULAR HGB CONC 33 % (32-36); MEAN CORPUSCULAR VOLUME 93 fL (79.0-98.0); MONOCYTES # (AUTO) 0.5 K/uL (0.0-1.0); MONOCYTES % (AUTO) 6.1 % (1.7-9.3); NEUTROPHILS # (AUTO) 6.3 K/uL (1.8-7.7); NEUTROPHILS % (AUTO) 71.5 % (40.0-70.0); PLATELET COUNT (AUTO) 295 K/uL (130-430); RED BLOOD CELL COUNT(AUTO) 4.21 MIL/uL (4.2-6.2); RED CELL DISTRIBUTION WIDTH 11.6 % (9.0-15.0); SODIUM SERUM 135 mmol/L (136-145); UREA NITROGEN, BLOOD 12 mg/dL (8-21); WHITE BLOOD COUNT (AUTO) 8.8 K/uL (4.8-10.8)
[2018-03-21 18:21] LABS: ALANINE AMINOTRANSFERASE 21 U/L (12-78); ALBUMIN 3.5 g/dL (3.4-4.8); ASPARTATE AMINOTRANSFERASE 22 U/L (10-37); TOTAL BILIRUBIN 0.4 mg/dL (0.0-1.0)
[2018-03-21 18:22] LABS: ALCOHOL, BLOOD < 3 mg/dL (<10)
[2018-03-21 18:50] VITALS: BP_SYST 140
== END 2018-03-21 18:50 | disposition home or self-care (01) ==
LOC: SED 16:24
DX: S80.02XA Contusion of left knee, initial encounter (principal); S30.0XXA Contusion of lower back and pelvis, initial encounter; S09.90XA Unspecified injury of head, initial encounter; E11.9 Type 2 diabetes mellitus without complications; I10 Essential (primary) hypertension; E78.00 Pure hypercholesterolemia, unspecified; Z86.73 Personal history of transient ischemic attack (TIA), and cerebral infarction without residual deficits; Z88.1 Allergy status to other antibiotic agents; Z88.6 Allergy status to analgesic agent; Z79.82 Long term (current) use of aspirin; Z79.899 Other long term (current) drug therapy; Y04.0XXA Assault by unarmed brawl or fight, initial encounter; Y93.89 Activity, other specified; Y92.89 Other specified places as the place of occurrence of the external cause; Y99.8 Other external cause status
CPT/HCPCS: 36415; 70450; 70486; 71045; 80053; 84484; 85025; 93005; 96361; 96374; 99284; G0482; J1885; J7030

== ENCOUNTER 2018-04-06 18:50 | Emergency (ER) | payer OTHER, BC ==
[~2018-04-06] VITALS: Ht 167.6 cm; Wt 79.4 kg
[2018-04-06 18:54] VITALS: BP_SYST 147
[2018-04-06] MEDS ORDERED: SULFAMETHOXAZOLE/TRIMETHOPR DS 1 TABLET PO ONE (20:15)
[2018-04-06 21:01] VITALS: BP_SYST 155
== END 2018-04-06 21:01 | disposition home or self-care (01) ==
LOC: SED 18:50
DX: L03.115 Cellulitis of right lower limb (principal); E78.00 Pure hypercholesterolemia, unspecified; E11.9 Type 2 diabetes mellitus without complications; I10 Essential (primary) hypertension; Z86.79 Personal history of other diseases of the circulatory system; Z88.1 Allergy status to other antibiotic agents; Z88.6 Allergy status to analgesic agent; Z88.8 Allergy status to other drugs, medicaments and biological substances; Z79.82 Long term (current) use of aspirin; Z79.899 Other long term (current) drug therapy
CPT/HCPCS: 99283

== ENCOUNTER 2018-05-29 06:23 | Emergency (ER) | payer OTHER, BC ==
[~2018-05-29] VITALS: Ht 162.6 cm; Wt 83.9 kg
[2018-05-29 06:23] VITALS: BP_SYST 153
[2018-05-29] MEDS ORDERED: ASPIRIN 81 MG TAB.CHEW PO ONE (06:30)
--- NOTE | 2018-05-29 06:30 | NUR ---
Patient to ER bed 7 to gown for evaluation. Side rails up.
--- NOTE | 2018-05-29 06:31 | NUR ---
BEATRIZ Wagner at bedside examining patient.
--- NOTE | 2018-05-29 06:34 | NUR ---
BG 128, ER made aware.
--- NOTE | 2018-05-29 06:35 | NUR ---
Pt came to the ED for L sided chest pain which radiates to L arm which started about 30 minutes ago coming itno the ED. Denies n/v/d. Denies injury or trauma. DEnies SOB or cough. HX of HTN, diabetes, CHF and thyroid disease. HX of heart attack in the past. Denies swelling of bilateral lower legs. No other complaints/injuries noted. Will cont. to monitor.
[2018-05-29] MEDS ORDERED: NITROGLYCERIN 0.4 MG TAB.SUBL SL ONE (06:45)
--- NOTE | 2018-05-29 06:51 | NUR ---
Pt medicated with nitroglycerin and ASA per MD order. Tolerated well. Will cont. to monitor.
--- NOTE | 2018-05-29 07:04 | NUR ---
When asked if pt has chest pain she states, "no it is not as bad." Pt declined another dose of nitroglycerin. ER MD made aware.
--- NOTE | 2018-05-29 07:04 | NUR ---
Cassy briggs in ED - 05/29/18 at 0706 by [email or web address] When asked if pt has chest pain she states, "no it is not as bad." Pt declined another dose of nitroglycerin.
--- NOTE | 2018-05-29 07:20 | NUR ---
received patient information. patient resting in bed, feeling great after medication and would like to go home.
[2018-05-29 07:37] LABS: BASOPHILS % (AUTO) 0.5 % (0.0-2.0); EOSINOPHILS % (AUTO) 2.5 % (0.0-4.0); HEMATOCRIT 39.3 % (36-48); HEMOGLOBIN 13.4 g/dL (12.0-16.0); LYMPHOCYTES # (AUTO) 1.3 K/uL (1.0-5.5); MEAN CORPUSCULAR HEMOGLOBIN 30 pg (27-31); MEAN CORPUSCULAR HGB CONC 34 % (32-36); MEAN CORPUSCULAR VOLUME 89 fL (79.0-98.0); MONOCYTES % (AUTO) 7.5 % (1.7-9.3); NEUTROPHILS # (AUTO) 5.8 K/uL (1.8-7.7); NEUTROPHILS % (AUTO) 73.5 % (40.0-70.0); PLATELET COUNT (AUTO) 268 K/uL (130-430); RED BLOOD CELL COUNT(AUTO) 4.43 MIL/uL (4.2-6.2); RED CELL DISTRIBUTION WIDTH 12.6 % (9.0-15.0); WHITE BLOOD COUNT (AUTO) 7.9 K/uL (4.8-10.8)
[2018-05-29 07:38] LABS: EOSINOPHILS # (AUTO) 0.2 K/uL (0.0-0.4); MONOCYTES # (AUTO) 0.6 K/uL (0.0-1.0)
[2018-05-29 07:44] LABS: ANION GAP 10 (5-15); CALCIUM 9.2 mg/dL (8.4-11.0); CHLORIDE 104 mmol/L (98-107); CREATININE 0.77 mg/dL (0.55-1.30); GLUCOSE 173 mg/dL (70-99); SODIUM SERUM 140 mmol/L (136-145); UREA NITROGEN, BLOOD 13 mg/dL (8-21)
[2018-05-29 07:53] LABS: ALANINE AMINOTRANSFERASE 24 U/L (12-78); ALBUMIN 3.2 g/dL (3.4-4.8); ASPARTATE AMINOTRANSFERASE 25 U/L (10-37); TOTAL BILIRUBIN 0.2 mg/dL (0.0-1.0)
--- NOTE | 2018-05-29 08:00 | NUR ---
patient resting in bed asking about going home.
[2018-05-29 09:26] LABS: BILIRUBIN,URINE NEGATIVE (NEGATIVE); BLOOD, URINE NEGATIVE (NEGATIVE); CLARITY/URINE CLEAR (CLEAR); COLOR,URINE YELLOW (YELLOW); GLUCOSE,URINE TRACE (NEGATIVE); KETONES,URINE NEGATIVE (NEGATIVE); LEUKOCYTE ESTERASE ,URINE NEGATIVE (NEGATIVE); NITRITE, URINE NEGATIVE (NEGATIVE); PH,URINE 5.5 (5.0-8.0); PROTEIN URINE NEGATIVE (NEGATIVE); UROBILINOGEN,URINE 0.2 (0.2-1.0)
--- NOTE | 2018-05-29 09:35 | NUR ---
patient would like to go home, md notified.
[2018-05-29 10:50] VITALS: BP_SYST 133
--- NOTE | 2018-05-29 10:56 | NUR ---
Patient given written and verbal discharge instructions and verbalizes understanding. ER MD discussed with patient the results and treatment provided. Patient in stable condition. ID arm band removed. IV catheter removed intact and dressing applied, no active bleeding. Rx of Nitroglycerin given. Patient educated on pain management and to follow up with PMD. Pain Scale 0/10. Opportunity for questions provided and answered. Medication side effect fact sheet provided.
== END 2018-05-29 10:56 | disposition home or self-care (01) ==
LOC: SED 06:23
DX: R07.89 Other chest pain (principal); E11.65 Type 2 diabetes mellitus with hyperglycemia; E78.00 Pure hypercholesterolemia, unspecified; I10 Essential (primary) hypertension; Z86.73 Personal history of transient ischemic attack (TIA), and cerebral infarction without residual deficits; Z86.79 Personal history of other diseases of the circulatory system; Z88.1 Allergy status to other antibiotic agents; Z88.6 Allergy status to analgesic agent; Z88.8 Allergy status to other drugs, medicaments and biological substances; Z79.82 Long term (current) use of aspirin; Z79.4 Long term (current) use of insulin
CPT/HCPCS: 36415; 71045; 80053; 81003; 83880; 84484; 85025; 93005; 99284

== ENCOUNTER 2018-06-03 17:09 | Emergency (ER) | payer OTHER, BC ==
[~2018-06-03] VITALS: Ht 170.2 cm; Wt 81.6 kg
[2018-06-03 17:10] VITALS: BP_SYST 157
== END 2018-06-03 17:45 | disposition left against medical advice (07) ==
LOC: SED 17:09
DX: R51 Headache (principal); H57.12 Ocular pain, left eye; E78.00 Pure hypercholesterolemia, unspecified; E11.9 Type 2 diabetes mellitus without complications; F17.200 Nicotine dependence, unspecified, uncomplicated; I10 Essential (primary) hypertension; Z86.73 Personal history of transient ischemic attack (TIA), and cerebral infarction without residual deficits; Z86.79 Personal history of other diseases of the circulatory system; Z88.1 Allergy status to other antibiotic agents; Z88.6 Allergy status to analgesic agent; Z79.82 Long term (current) use of aspirin
CPT/HCPCS: 99281

== ENCOUNTER → 2018-07-21 09:14 | Emergency (ER) | payer OTHER, BC ==
--- NOTE | 2018-07-21 09:14 | NUR ---
PT [facility], PT DECIDED UPON ARRIVAL TO LEAVE HOSPITAL WITHOUT BEING SEEN BY AN MD OR BEING TRIAGED. PT IS WELL KNOWN TO ER AND STATES SHE HAS A GRANDDAUGHTER AT HOME TO TAKE CARE OF.
== END | disposition left against medical advice (07) ==
LOC: SED 09:14
DX: M25.569 Pain in unspecified knee (principal); Z53.21 Procedure and treatment not carried out due to patient leaving prior to being seen by health care provider

== ENCOUNTER 2019-02-05 14:05 | Emergency (ER) | payer OTHER, BC ==
[~2019-02-05] VITALS: Ht 167.6 cm; Wt 81.6 kg
[2019-02-05 14:49] VITALS: BP_SYST 163
--- NOTE | 2019-02-05 14:49 | NUR ---
Patient to ER bed 8 to gown for evaluation. Side rails up. Report received from LV Gallegos.
--- NOTE | 2019-02-05 15:00 | NUR ---
BEATRIZ Worrell at bedside examining patient.
--- NOTE | 2019-02-05 15:05 | NUR ---
Patient brought in by daughter from home. patient c/o epigastric pain 09/06. Patient has history of thyroid cancer w/partial thyroidectomy and lymphectomy. patient currently treating with oncologist at [facility]. patient has nausea, denies vomiting. will continue to monitor.
--- NOTE | 2019-02-05 15:30 | NUR ---
Patient in bed. no s/s of acute distress noted. daughter at bedside. will continue to monitor.
--- NOTE | 2019-02-05 16:25 | NUR ---
Patient transported to radiology via wheelchair, accompanied by consulting technical director.
[2019-02-05] MEDS ORDERED: NACL 0.9% 1,000 ML IV ONE (16:30)
[2019-02-05] MEDS ORDERED: ONDANSETRON HCL 4 MG/2 ML VIAL IVP ONE (16:30)
[2019-02-05] MEDS ORDERED: KETOROLAC TROMETHAMINE 30 MG VIAL IVP ONE (16:30)
[2019-02-05 16:54] LABS: BASOPHILS % (AUTO) 0.5 % (0.0-2.0); EOSINOPHILS # (AUTO) 0.2 K/uL (0.0-0.4); EOSINOPHILS % (AUTO) 2.7 % (0.0-4.0); HEMATOCRIT 40.1 % (36-48); HEMOGLOBIN 13.5 g/dL (12.0-16.0); LYMPHOCYTES # (AUTO) 1.4 K/uL (1.0-5.5); LYMPHOCYTES % (AUTO) 17.4 % (20.5-51.5); MEAN CORPUSCULAR HEMOGLOBIN 30 pg (27-31); MEAN CORPUSCULAR HGB CONC 34 % (32-36); MEAN CORPUSCULAR VOLUME 90 fL (79.0-98.0); MONOCYTES # (AUTO) 0.7 K/uL (0.0-1.0); MONOCYTES % (AUTO) 7.9 % (1.7-9.3); NEUTROPHILS # (AUTO) 5.9 K/uL (1.8-7.7); NEUTROPHILS % (AUTO) 71.5 % (40.0-70.0); PLATELET COUNT (AUTO) 282 K/uL (130-430); RED BLOOD CELL COUNT(AUTO) 4.45 MIL/uL (4.2-6.2); RED CELL DISTRIBUTION WIDTH 13.5 % (9.0-15.0); WHITE BLOOD COUNT (AUTO) 8.3 K/uL (4.8-10.8)
[2019-02-05 17:11] LABS: ANION GAP 9 (5-15); CALCIUM 9.1 mg/dL (8.4-11.0); CHLORIDE 96 mmol/L (98-107); CREATININE 1.17 mg/dL (0.55-1.30); GLUCOSE 394 mg/dL (70-99); POTASSIUM 4.8 mmol/L (3.5-5.1); SODIUM SERUM 132 mmol/L (136-145); UREA NITROGEN, BLOOD 14 mg/dL (8-21)
[2019-02-05 17:17] LABS: ALANINE AMINOTRANSFERASE 29 U/L (12-78); ALBUMIN 3.3 g/dL (3.4-4.8); ASPARTATE AMINOTRANSFERASE 27 U/L (10-37); LIPASE 138 U/L (73-393); TOTAL BILIRUBIN 0.3 mg/dL (0.0-1.0)
--- NOTE | 2019-02-05 17:30 | NUR ---
made several attempts to start IV on patient by [address] benoit aware and indicated changes to medications.
[2019-02-05] MEDS ORDERED: INSULIN REGULAR, HUMAN 10 UNITS/0.1 ML INJ IVP ONE (17:45)
--- NOTE | 2019-02-05 18:00 | NUR ---
patient in bed, no s/s of acute distress noted. will continue to monitor.
[2019-02-05] MEDS ORDERED: KETOROLAC TROMETHAMINE 30 MG VIAL IM ONE (18:15)
[2019-02-05] MEDS ORDERED: LACTULOSE 20 GM/30 ML UDC PO ONE (18:15)
[2019-02-05] MEDS ORDERED: INSULIN REGULAR, HUMAN 10 UNITS/0.1 ML INJ SUBCUT ONE (18:15)
[2019-02-05] MEDS ORDERED: ONDANSETRON 4 MG ODT TAB PO ONE (18:15)
[2019-02-05 19:05] VITALS: BP_SYST 147
--- NOTE | 2019-02-05 19:05 | NUR ---
Patient given written and verbal discharge instructions and verbalizes understanding. ER MD discussed with patient the results and treatment provided. Patient in stable condition. ID arm band removed. Rx of lactulose given. Patient educated on pain management and to follow up with PMD. Pain Scale 3/10. Opportunity for questions provided and answered. Medication side effect fact sheet provided.
[2019-02-05 20:23] LABS: BILIRUBIN,URINE NEGATIVE (NEGATIVE); BLOOD, URINE NEGATIVE (NEGATIVE); CLARITY/URINE CLEAR (CLEAR); COLOR,URINE YELLOW (YELLOW); GLUCOSE,URINE 3+ (NEGATIVE); KETONES,URINE NEGATIVE (NEGATIVE); LEUKOCYTE ESTERASE ,URINE 1+ (NEGATIVE); NITRITE, URINE NEGATIVE (NEGATIVE); PH,URINE 6.5 (5.0-8.0); PROTEIN URINE NEGATIVE (NEGATIVE); UROBILINOGEN,URINE 0.2 (0.2-1.0)
[2019-02-05 20:49] LABS: BACTERIA,URINE FEW /HPF (None Seen); MUCUS,URINE None Seen /LPF (None Seen); RBC,URINE 0-3 /HPF (0-3)
== END 2019-02-05 19:05 | disposition home or self-care (01) ==
LOC: SED 14:05
DX: K59.00 Constipation, unspecified (principal); N20.0 Calculus of kidney; E11.65 Type 2 diabetes mellitus with hyperglycemia; I10 Essential (primary) hypertension; E78.00 Pure hypercholesterolemia, unspecified; Z88.1 Allergy status to other antibiotic agents; Z88.8 Allergy status to other drugs, medicaments and biological substances; Z79.4 Long term (current) use of insulin; Z79.82 Long term (current) use of aspirin
CPT/HCPCS: 36415; 74176; 80053; 81000; 83690; 85025; 87086; 96372; 99284; J1815; J1885; J7030; Q0162; J2405

== ENCOUNTER 2019-07-25 18:58 | Emergency (ER) | payer OTHER, BC ==
[~2019-07-25] VITALS: Ht 167.6 cm; Wt 95.3 kg
[2019-07-25 19:00] VITALS: BP_SYST 149
[2019-07-25] MEDS ORDERED: CYAN100070 PO (19:25)
[2019-07-25] MEDS ORDERED: DONE10TA44 PO (19:25)
[2019-07-25] MEDS ORDERED: VITD2000 PO (19:25)
[2019-07-25] MEDS ORDERED: LOSA50TA3 PO (19:25)
[2019-07-25] MEDS ORDERED: RESV1TAB PO (19:25)
[2019-07-25] MEDS ORDERED: SIMV20TA2 PO (19:25)
[2019-07-25] MEDS ORDERED: PRO40 PO (19:25)
[2019-07-25 20:11] LABS: BASOPHILS # (AUTO) 0.1 K/uL (0.0-0.2); BASOPHILS % (AUTO) 0.9 % (0.0-2.0); EOSINOPHILS # (AUTO) 0.2 K/uL (0.0-0.4); EOSINOPHILS % (AUTO) 2.4 % (0.0-4.0); HEMATOCRIT 37.2 % (36-48); HEMOGLOBIN 12.4 g/dL (12.0-16.0); LYMPHOCYTES # (AUTO) 2.1 K/uL (1.0-5.5); LYMPHOCYTES % (AUTO) 23.5 % (20.5-51.5); MEAN CORPUSCULAR HEMOGLOBIN 29 pg (27-31); MEAN CORPUSCULAR HGB CONC 33 % (32-36); MEAN CORPUSCULAR VOLUME 86 fL (79.0-98.0); MONOCYTES # (AUTO) 0.7 K/uL (0.0-1.0); NEUTROPHILS # (AUTO) 5.8 K/uL (1.8-7.7); NEUTROPHILS % (AUTO) 65.2 % (40.0-70.0); PLATELET COUNT (AUTO) 402 K/uL (130-430); RED BLOOD CELL COUNT(AUTO) 4.32 MIL/uL (4.2-6.2); RED CELL DISTRIBUTION WIDTH 14.3 % (9.0-15.0); WHITE BLOOD COUNT (AUTO) 8.9 K/uL (4.8-10.8)
[2019-07-25 20:18] LABS: ANION GAP 9 (5-15); CALCIUM 9.4 mg/dL (8.4-11.0); CHLORIDE 102 mmol/L (98-107); CREATININE 0.99 mg/dL (0.55-1.30); GLUCOSE 249 mg/dL (70-99); POTASSIUM 4.2 mmol/L (3.5-5.1); SODIUM SERUM 138 mmol/L (136-145); UREA NITROGEN, BLOOD 15 mg/dL (8-21)
[2019-07-25 20:27] LABS: ALANINE AMINOTRANSFERASE 25 U/L (12-78); ASPARTATE AMINOTRANSFERASE 25 U/L (10-37); TOTAL BILIRUBIN 0.3 mg/dL (0.0-1.0)
[2019-07-25 20:32] LABS: BILIRUBIN,URINE NEGATIVE (NEGATIVE); CLARITY/URINE CLEAR (CLEAR); COLOR,URINE YELLOW (YELLOW); GLUCOSE,URINE NEGATIVE (NEGATIVE); KETONES,URINE NEGATIVE (NEGATIVE); LEUKOCYTE ESTERASE ,URINE TRACE (NEGATIVE); NITRITE, URINE NEGATIVE (NEGATIVE); PROTEIN URINE NEGATIVE (NEGATIVE); UROBILINOGEN,URINE 0.2 (0.2-1.0)
[2019-07-25 20:35] LABS: BLOOD, URINE TRACE (NEGATIVE)
[2019-07-25 20:43] LABS: BACTERIA,URINE FEW /HPF (None Seen); RBC,URINE 0-3 /HPF (0-3)
[2019-07-25 20:44] LABS: MUCUS,URINE None Seen /LPF (None Seen)
[2019-07-25 22:17] VITALS: BP_SYST 139
== END 2019-07-25 22:17 | disposition home or self-care (01) ==
LOC: SED 18:58
DX: N39.0 Urinary tract infection, site not specified (principal); L03.115 Cellulitis of right lower limb; R53.1 Weakness; E78.00 Pure hypercholesterolemia, unspecified; I10 Essential (primary) hypertension; E11.9 Type 2 diabetes mellitus without complications; E03.9 Hypothyroidism, unspecified; Z86.79 Personal history of other diseases of the circulatory system; Z86.73 Personal history of transient ischemic attack (TIA), and cerebral infarction without residual deficits; Z85.9 Personal history of malignant neoplasm, unspecified; Z79.4 Long term (current) use of insulin; Z79.899 Other long term (current) drug therapy; Z79.82 Long term (current) use of aspirin; Z88.1 Allergy status to other antibiotic agents
CPT/HCPCS: 36415; 70450-TC; 71045; 80053; 81000-TC; 84484; 85025; 86710; 87086; 93005; 99285

== ENCOUNTER 2019-11-08 16:27 | Emergency (ER) | payer OTHER, BC ==
[~2019-11-08] VITALS: Ht 162.6 cm; Wt 90.7 kg
[~2019-11-08 16:27] MED LIST changes: +CYAN100070 PO; +DONE10TA44 PO; +LOSA50TA3 PO; +PRO40 PO; +RESV1TAB PO; +SIMV20TA2 PO; +VITD2000 PO
[2019-11-08 16:42] VITALS: BP_SYST 142
[2019-11-08] MEDS ORDERED: ONDANSETRON 4 MG ODT TAB PO ONE (18:45)
[2019-11-08] MEDS ORDERED: ACETAMINOPHEN 500 MG TABLET PO ONE (18:45)
[2019-11-08 18:54] VITALS: BP_SYST 142
== END 2019-11-08 18:54 | disposition home or self-care (01) ==
LOC: SED 16:27
DX: S06.0X0A Concussion without loss of consciousness, initial encounter (principal); S00.83XA Contusion of other part of head, initial encounter; R51 Headache; R11.0 Nausea; I10 Essential (primary) hypertension; E07.9 Disorder of thyroid, unspecified; E11.9 Type 2 diabetes mellitus without complications; Z86.73 Personal history of transient ischemic attack (TIA), and cerebral infarction without residual deficits; Z86.79 Personal history of other diseases of the circulatory system; Z85.9 Personal history of malignant neoplasm, unspecified; Z79.899 Other long term (current) drug therapy; Z79.4 Long term (current) use of insulin; Z79.82 Long term (current) use of aspirin; Z88.1 Allergy status to other antibiotic agents; Z88.0 Allergy status to penicillin; W18.39XA Other fall on same level, initial encounter; Y93.89 Activity, other specified; Y92.89 Other specified places as the place of occurrence of the external cause; Y99.8 Other external cause status
CPT/HCPCS: 70450; 70486; 99285; Q0162

== ENCOUNTER 2020-04-06 08:39 | Emergency (ER) | payer OTHER, BC, SELFPAY ==
[~2020-04-06] VITALS: Ht 167.6 cm; Wt 99.8 kg
[~2020-04-06 08:39] MED LIST changes: -ASPI-1153 PO; -CYAN100070 PO; +MEMA10TA PO; +MILK200C5 PO; +OMEG-82 PO; +TURM1CAP2 PO; +[UNRECOGNIZED DRUG - CODE] MC; +[UNRECOGNIZED DRUG - OTHER]
[2020-04-06 08:55] VITALS: BP_SYST 185
[2020-04-06 10:05] LABS: BASOPHILS # (AUTO) 0.1 K/uL (0.0-0.2); BASOPHILS % (AUTO) 0.5 % (0.0-2.0); EOSINOPHILS % (AUTO) 0.1 % (0.0-4.0); HEMATOCRIT 37.8 % (36-48); HEMOGLOBIN 12.4 g/dL (12.0-16.0); LYMPHOCYTES # (AUTO) 0.6 K/uL (1.0-5.5); LYMPHOCYTES % (AUTO) 3.6 % (20.5-51.5); MEAN CORPUSCULAR HEMOGLOBIN 28 pg (27-31); MEAN CORPUSCULAR HGB CONC 33 % (32-36); MEAN CORPUSCULAR VOLUME 85 fL (79.0-98.0); MONOCYTES # (AUTO) 0.5 K/uL (0.0-1.0); MONOCYTES % (AUTO) 2.9 % (1.7-9.3); NEUTROPHILS # (AUTO) 14.5 K/uL (1.8-7.7); NEUTROPHILS % (AUTO) 92.9 % (40.0-70.0); PLATELET COUNT (AUTO) 277 K/uL (130-430); RED BLOOD CELL COUNT(AUTO) 4.42 MIL/uL (4.2-6.2); RED CELL DISTRIBUTION WIDTH 15.8 % (9.0-15.0); WHITE BLOOD COUNT (AUTO) 15.6 K/uL (4.8-10.8)
[2020-04-06] MEDS ORDERED: DOXYCYCLINE HYCLATE 100 MG CAPSULE PO ONE (10:45)
[2020-04-06] MEDS ORDERED: AMOXICILLIN/CLAVULANATE POTASSIUM 500 MG TABLET PO ONE (10:45)
[2020-04-06 10:48] LABS: ALANINE AMINOTRANSFERASE 28 U/L (12-78); ALBUMIN 3.2 g/dL (3.4-4.8); ASPARTATE AMINOTRANSFERASE 23 U/L (10-37); CALCIUM 9.1 mg/dL (8.4-11.0); CHLORIDE 99 mmol/L (98-107); CREATININE 0.82 mg/dL (0.55-1.30); GLUCOSE 314 mg/dL (70-99); POTASSIUM 4.6 mmol/L (3.5-5.1); SODIUM SERUM 135 mmol/L (136-145); TOTAL BILIRUBIN 0.6 mg/dL (0.0-1.0); UREA NITROGEN, BLOOD 18 mg/dL (8-21)
[2020-04-06 11:05] LABS: ANION GAP 12 (5-15)
[2020-04-06 11:55] VITALS: BP_SYST 185
== END 2020-04-06 11:52 | disposition home or self-care (01) ==
LOC: SED 08:39
DX: S09.90XA Unspecified injury of head, initial encounter (principal); J18.9 Pneumonia, unspecified organism; R06.02 Shortness of breath; R05 Cough; I10 Essential (primary) hypertension; E11.9 Type 2 diabetes mellitus without complications; E78.00 Pure hypercholesterolemia, unspecified; E07.9 Disorder of thyroid, unspecified; Z86.73 Personal history of transient ischemic attack (TIA), and cerebral infarction without residual deficits; Z86.79 Personal history of other diseases of the circulatory system; Z85.9 Personal history of malignant neoplasm, unspecified; Z79.899 Other long term (current) drug therapy; Z79.4 Long term (current) use of insulin; Z90.710 Acquired absence of both cervix and uterus; Z88.6 Allergy status to analgesic agent; Z88.1 Allergy status to other antibiotic agents; Z20.828 Contact with and (suspected) exposure to other viral communicable diseases; W18.09XA Striking against other object with subsequent fall, initial encounter; Y93.89 Activity, other specified; Y92.89 Other specified places as the place of occurrence of the external cause; Y99.8 Other external cause status
CPT/HCPCS: 36415; 70450-TC; 71046-TC; 76376; 80053; 84484; 85025; 93005; 99285

== ENCOUNTER 2020-09-30 20:09 | Emergency (ER) | payer OTHER, BC ==
[~2020-09-30] VITALS: Ht 162.6 cm; Wt 97.1 kg
[2020-09-30 20:23] VITALS: BP_SYST 171
--- NOTE | 2020-09-30 20:24 | NUR ---
Came in ER from home accompanied by daughter this 75 year old female, AAOX4, breathing spontaneously at room air, not in distress noted. WIth chief complaints of chest pain, shortness of breathe 20 mins prior she came to ER. History of DM ON INSULIN, HTN, HLD, left breast Cancer s/p lympectomy, CVA 1997, thyroid problem, Dementia. Allergy to Ciprofloxacin, Erythromycin base, losartan, nitrofurantoin. Vital signs taken and recorded
--- NOTE | 2020-09-30 20:25 | NUR ---
Seen and examined by Dr. Cloud, ER Attending
--- NOTE | 2020-09-30 20:35 | NUR ---
# 20 gauge angiocath placed to right hand. Use of asceptic technique. Opsite placed over site. Blood return noted. Flushed with 10 cc of normal saline. No evidence of infiltration noted. Patient tolerated well.
[2020-09-30] MEDS ORDERED: NACL 0.9% 1,000 ML IV ONE (20:45)
[2020-09-30] MEDS ORDERED: IPRATROPIUM/ALBUTEROL SULFATE 3 ML AMPUL.NEB (DUONEB) INH ONE (20:45)
[2020-09-30] MEDS ORDERED: INSULIN REGULAR, HUMAN 10 UNITS/0.1 ML INJ IVP ONE (20:45)
--- NOTE | 2020-09-30 20:45 | NUR ---
Breathing treatment rendered by RT
--- NOTE | 2020-09-30 20:50 | NUR ---
technical service representative at bedside, blood drawn
[2020-09-30] MEDS ORDERED: LIP10 PO (21:09)
[2020-09-30] MEDS ORDERED: EZET10TA30 PO (21:09)
[2020-09-30 21:18] LABS: BASOPHILS # (AUTO) 0.2 K/uL (0.0-0.2); BASOPHILS % (AUTO) 1.9 % (0.0-2.0); EOSINOPHILS # (AUTO) 0.4 K/uL (0.0-0.4); EOSINOPHILS % (AUTO) 4.1 % (0.0-4.0); HEMATOCRIT 36.4 % (36-48); HEMOGLOBIN 12.2 g/dL (12.0-16.0); LYMPHOCYTES # (AUTO) 1.7 K/uL (1.0-5.5); MEAN CORPUSCULAR HEMOGLOBIN 29 pg (27-31); MEAN CORPUSCULAR HGB CONC 34 % (32-36); MEAN CORPUSCULAR VOLUME 85 fL (79.0-98.0); MONOCYTES # (AUTO) 0.7 K/uL (0.0-1.0); MONOCYTES % (AUTO) 7.6 % (1.7-9.3); NEUTROPHILS # (AUTO) 5.9 K/uL (1.8-7.7); NEUTROPHILS % (AUTO) 67.4 % (40.0-70.0); PLATELET COUNT (AUTO) 286 K/uL (130-430); RED BLOOD CELL COUNT(AUTO) 4.27 MIL/uL (4.2-6.2); RED CELL DISTRIBUTION WIDTH 15.1 % (9.0-15.0); WHITE BLOOD COUNT (AUTO) 8.8 K/uL (4.8-10.8)
[2020-09-30 21:23] LABS: ANION GAP 9 (5-15); CALCIUM 8.9 mg/dL (8.4-11.0); CHLORIDE 98 mmol/L (98-107); CREATININE 1.21 mg/dL (0.55-1.30); POTASSIUM 4.7 mmol/L (3.5-5.1); SODIUM SERUM 132 mmol/L (136-145); UREA NITROGEN, BLOOD 13 mg/dL (8-21)
--- NOTE | 2020-09-30 21:23 | NUR ---
To toilet ambulatory assisted by daughter
[2020-09-30 21:31] LABS: GLUCOSE 452 mg/dL (70-99)
[2020-09-30 21:51] LABS: ALANINE AMINOTRANSFERASE 21 U/L (12-78); ASPARTATE AMINOTRANSFERASE 19 U/L (10-37); TOTAL BILIRUBIN 0.2 mg/dL (0.0-1.0)
--- NOTE | 2020-09-30 23:45 | NUR ---
For CTA CHEST, Consent obtained from the daughter, verbalized understanding and signed. Apprently IV cannula infiltrated, patient complained of pain , mild swelling noted. Removed and dressing applied, no active bleeding noted.
--- NOTE | 2020-10-01 00:31 | NUR ---
IV cannula tried to insert twice, apparently failed due to patient is hard stick vein. Dr. Gutierrez Faith made aware and he said to try insert guided ultrasound
[2020-10-01] MEDS ORDERED: LORazepam 2 MG/ML VIAL IM ONE (00:45)
[2020-10-01] MEDS ORDERED: LORazepam 2 MG/ML VIAL ONE (00:45)
--- NOTE | 2020-10-01 02:05 | NUR ---
Dr. Cloud inserted aseptically guided ultrasound IV cannula g18 at right basilic vein, asymtomatic and patent.
--- NOTE | 2020-10-01 02:19 | NUR ---
blood bank laboratory technologist Amira made aware that IV line inserted and ready for CTA chest
[2020-10-01] MEDS ORDERED: IOHEXOL 350 mgI/mL, 150 ML INFUS..BTL IV ONE (02:37)
--- NOTE | 2020-10-01 02:45 | NUR ---
To CT scan department per wheelchair in stable condition accompanied by precision optics technician
--- NOTE | 2020-10-01 03:01 | NUR ---
Bck to bed from ct scan, kept comfortable
[2020-10-01] MEDS ORDERED: CLON0.5T4 PO (03:58)
--- NOTE | 2020-10-01 04:01 | NUR ---
Incentive spirometry instructed by RT, verbalized understanding
[2020-10-01 04:06] VITALS: BP_SYST 145
--- NOTE | 2020-10-01 04:06 | NUR ---
Patient given written and verbal discharge instructions and verbalizes understanding. ER MD discussed with patient the results and treatment provided. Patient in stable condition. ID arm band removed. IV catheter removed intact and dressing applied, no active bleeding. Rx of clonazepam given. Patient educated on pain management and to follow up with PMD. Pain Scale 0/10. Opportunity for questions provided and answered. Medication side effect fact sheet provided.
== END 2020-10-01 04:09 | disposition home or self-care (01) ==
LOC: SED 20:09
DX: R06.00 Dyspnea, unspecified (principal); R01.1 Cardiac murmur, unspecified; J98.11 Atelectasis; F41.9 Anxiety disorder, unspecified; I10 Essential (primary) hypertension; E11.9 Type 2 diabetes mellitus without complications; E78.00 Pure hypercholesterolemia, unspecified; Z88.1 Allergy status to other antibiotic agents; Z88.5 Allergy status to narcotic agent; Z79.899 Other long term (current) drug therapy
CPT/HCPCS: 36415; 71045; 71275; 76376; 80053; 82962; 83880; 84484; 85025; 85379; 93005; 94640; 96361; 96372; 96374; 99285; J2060; J7030; Q9967; J1815

== ENCOUNTER 2020-12-18 09:53 | Emergency (ER) | payer OTHER, BC ==
[~2020-12-18] VITALS: Ht 165.1 cm; Wt 99.8 kg
[~2020-12-18 09:53] MED LIST changes: +CLON0.5T4 PO; +EZET10TA30 PO; +LIP10 PO; -RESV1TAB PO
[2020-12-18 10:04] VITALS: BP_SYST 128
--- NOTE | 2020-12-18 10:10 | NUR ---
Patient to ER bed 6 to gown for evaluation. Side rails up. Report given to Nori AWAN.
--- NOTE | 2020-12-18 10:15 | NUR ---
ER at bedside examining patient.
--- NOTE | 2020-12-18 10:15 | NUR ---
Pt. bib daughter with c/o pain to right side/groin area, pts. daughter states she has had groin pain and neck pain but had an angiogram on 12/13 and has contributed it to that but about an hour she started to experience sharp pain in lower right quadrant.
[2020-12-18] MEDS ORDERED: KETOROLAC TROMETHAMINE 30 MG VIAL IVP ONE (10:30)
[2020-12-18 11:00] LABS: BASOPHILS # (AUTO) 0.1 K/uL (0.0-0.2); BASOPHILS % (AUTO) 0.7 % (0.0-2.0); EOSINOPHILS # (AUTO) 0.2 K/uL (0.0-0.4); HEMATOCRIT 33.8 % (36-48); HEMOGLOBIN 11.5 g/dL (12.0-16.0); LYMPHOCYTES # (AUTO) 1.4 K/uL (1.0-5.5); LYMPHOCYTES % (AUTO) 17.9 % (20.5-51.5); MEAN CORPUSCULAR HEMOGLOBIN 30 pg (27-31); MEAN CORPUSCULAR HGB CONC 34 % (32-36); MEAN CORPUSCULAR VOLUME 87 fL (79.0-98.0); MONOCYTES # (AUTO) 0.5 K/uL (0.0-1.0); MONOCYTES % (AUTO) 6.3 % (1.7-9.3); NEUTROPHILS # (AUTO) 5.4 K/uL (1.8-7.7); NEUTROPHILS % (AUTO) 72.1 % (40.0-70.0); PLATELET COUNT (AUTO) 278 K/uL (130-430); RED CELL DISTRIBUTION WIDTH 14.8 % (9.0-15.0); WHITE BLOOD COUNT (AUTO) 7.5 K/uL (4.8-10.8)
[2020-12-18 11:03] LABS: ANION GAP 6 (5-15); CALCIUM 8.9 mg/dL (8.4-11.0); CHLORIDE 103 mmol/L (98-107); CREATININE 1.08 mg/dL (0.55-1.30); GLUCOSE 227 mg/dL (70-99); POTASSIUM 4.5 mmol/L (3.5-5.1); SODIUM SERUM 136 mmol/L (136-145); UREA NITROGEN, BLOOD 18 mg/dL (8-21)
--- NOTE | 2020-12-18 11:03 | NUR ---
Patient transported to radiology for CT scan via wheelchair, accompanied by staff.
[2020-12-18 11:08] LABS: ALANINE AMINOTRANSFERASE 29 U/L (12-78); ASPARTATE AMINOTRANSFERASE 30 U/L (10-37); TOTAL BILIRUBIN 0.4 mg/dL (0.0-1.0)
--- NOTE | 2020-12-18 11:48 | NUR ---
Pt. now c/o pain to both groin areas, stated medicine did not help much, notified Dr. Powell.
[2020-12-18] MEDS ORDERED: TRAM50TA PO (11:54)
[2020-12-18] MEDS ORDERED: ONDANSETRON HCL 4 MG/2 ML VIAL IVP ONE (12:00)
[2020-12-18] MEDS ORDERED: fentaNYL CITRATE/PF 100 MCG/2 ML AMP IVP ONE (12:00)
[2020-12-18 12:40] VITALS: BP_SYST 133
--- NOTE | 2020-12-18 12:44 | NUR ---
Patient given written and verbal discharge instructions and verbalizes understanding. ER MD discussed with patient the results and treatment provided. Patient in stable condition. ID arm band removed. Rx of Tramadol given. Patient educated on pain management and to follow up with PMD. Pain Scale 0/10. Opportunity for questions provided and answered. Medication side effect fact sheet provided.
== END 2020-12-18 12:40 | disposition home or self-care (01) ==
LOC: SED 09:53
DX: R10.31 Right lower quadrant pain (principal); I10 Essential (primary) hypertension; E11.9 Type 2 diabetes mellitus without complications; E78.00 Pure hypercholesterolemia, unspecified; Z79.4 Long term (current) use of insulin; Z88.1 Allergy status to other antibiotic agents; Z88.5 Allergy status to narcotic agent; Z79.899 Other long term (current) drug therapy
CPT/HCPCS: 36415; 71045; 74176; 76376; 80053; 83880; 84484; 85025; 93005; 96374; 96375; 99285; J1885; J2405; J3010

== ENCOUNTER 2021-03-02 11:18 | Emergency (ER) | payer OTHER, BC ==
[~2021-03-02] VITALS: Ht 165.1 cm; Wt 90.7 kg
[~2021-03-02 11:18] MED LIST changes: +TRAM50TA PO
[2021-03-02 11:20] VITALS: BP_SYST 147
[2021-03-02 13:49] LABS: BILIRUBIN,URINE NEGATIVE (NEGATIVE); BLOOD, URINE 1+ (NEGATIVE); CLARITY/URINE SL CLOUDY (CLEAR); COLOR,URINE YELLOW (YELLOW); GLUCOSE,URINE 3+ (NEGATIVE); KETONES,URINE 1+ (NEGATIVE); LEUKOCYTE ESTERASE ,URINE NEGATIVE (NEGATIVE); NITRITE, URINE POSITIVE (NEGATIVE); PH,URINE 5.5 (5.0-8.0); PROTEIN URINE NEGATIVE (NEGATIVE)
[2021-03-02 13:59] LABS: BASOPHILS # (AUTO) 0.1 K/uL (0.0-0.2); BASOPHILS % (AUTO) 0.6 % (0.0-2.0); EOSINOPHILS # (AUTO) 0.2 K/uL (0.0-0.4); EOSINOPHILS % (AUTO) 2.1 % (0.0-4.0); HEMATOCRIT 41.8 % (36-48); HEMOGLOBIN 13.8 g/dL (12.0-16.0); LYMPHOCYTES # (AUTO) 1.5 K/uL (1.0-5.5); LYMPHOCYTES % (AUTO) 14.9 % (20.5-51.5); MEAN CORPUSCULAR HEMOGLOBIN 28 pg (27-31); MEAN CORPUSCULAR HGB CONC 33 % (32-36); MEAN CORPUSCULAR VOLUME 86 fL (79.0-98.0); MONOCYTES # (AUTO) 0.7 K/uL (0.0-1.0); MONOCYTES % (AUTO) 7.3 % (1.7-9.3); NEUTROPHILS # (AUTO) 7.5 K/uL (1.8-7.7); NEUTROPHILS % (AUTO) 75.1 % (40.0-70.0); PLATELET COUNT (AUTO) 324 K/uL (130-430); RED BLOOD CELL COUNT(AUTO) 4.88 MIL/uL (4.2-6.2); RED CELL DISTRIBUTION WIDTH 14.2 % (9.0-15.0)
[2021-03-02 14:02] LABS: BACTERIA,URINE MANY /HPF (None Seen)
[2021-03-02 14:16] LABS: ANION GAP 15 (5-15); CALCIUM 9.7 mg/dL (8.4-11.0); CHLORIDE 100 mmol/L (98-107); CREATININE 1.06 mg/dL (0.55-1.30); GLUCOSE 121 mg/dL (70-99); POTASSIUM 3.6 mmol/L (3.5-5.1); SODIUM SERUM 134 mmol/L (136-145); UREA NITROGEN, BLOOD 16 mg/dL (8-21)
[2021-03-02 14:22] LABS: ALANINE AMINOTRANSFERASE 24 U/L (12-78); ALBUMIN 3.7 g/dL (3.4-4.8); ASPARTATE AMINOTRANSFERASE 32 U/L (10-37); TOTAL BILIRUBIN 0.6 mg/dL (0.0-1.0)
[2021-03-02 15:16] LABS: PROTHROMBIN TIME 10.9 SECS (9.5-12.5)
[2021-03-02] MEDS ORDERED: NITR-85 PO (16:26)
[2021-03-02 16:44] VITALS: BP_SYST 147
== END 2021-03-02 16:35 | disposition home or self-care (01) ==
LOC: SED 11:18
DX: K12.1 Other forms of stomatitis (principal); N39.0 Urinary tract infection, site not specified; I10 Essential (primary) hypertension; E11.9 Type 2 diabetes mellitus without complications; E78.00 Pure hypercholesterolemia, unspecified; Z88.1 Allergy status to other antibiotic agents; Z88.5 Allergy status to narcotic agent; Z79.899 Other long term (current) drug therapy
CPT/HCPCS: 36415; 71045; 80053; 81000; 83605; 85025; 85610-TC; 85730-TC; 86140; 87040-TC; 87086; 93005; 99285

== ENCOUNTER 2021-03-08 08:28 | Outpatient (CLI) | payer OTHER, BC ==
[~2021-03-08 08:28] MED LIST changes: +NITR-85 PO
[2021-03-08] MEDS ORDERED: DIATR MEGLU/DIATRIZ SOD 30 ML SOLUTION PO ONE (09:28)
== END 2021-03-08 19:24 | disposition home or self-care (01) ==
LOC: SCT 08:28
PROVIDERS: ATTEND Internal Medicine
DX: K42.9 Umbilical hernia without obstruction or gangrene (principal); K57.30 Diverticulosis of large intestine without perforation or abscess without bleeding; I70.0 Atherosclerosis of aorta; R10.30 Lower abdominal pain, unspecified
CPT/HCPCS: 74176; 76376; Q9964

== ENCOUNTER 2021-04-01 09:35 | Outpatient (CLI) | payer OTHER, BC ==
[2021-04-01] MEDS ORDERED: BARIUM SULFATE 135 ML SUSP.RECON (E-Z-HD) PO ONE (09:53)
== END 2021-04-01 20:16 | disposition home or self-care (01) ==
LOC: SRD 09:35
DX: R13.10 Dysphagia, unspecified (principal)
CPT/HCPCS: 74220-TC

== ENCOUNTER 2021-04-12 10:04 | Emergency (ER) | payer OTHER, BC, SELFPAY ==
[~2021-04-12] VITALS: Ht 165.1 cm; Wt 88.5 kg
--- NOTE | 2021-04-12 10:05 | NUR ---
Placed in room 1 . Placed on cardiac rehabilitation specialist, blood pressure machine and pulse oximeter. To gown for exam. Side rails up. Report given to LV Lay.
--- NOTE | 2021-04-12 10:13 | NUR ---
DR TSAI AT BEDSIDE EXAMINING PT.
[2021-04-12 10:31] VITALS: BP_SYST 145
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
[2021-04-12 12:00] VITALS: BP_SYST 126
[2021-04-12 12:39] LABS: BASOPHILS # (AUTO) 0.1 K/uL (0.0-0.2); BASOPHILS % (AUTO) 0.9 % (0.0-2.0); EOSINOPHILS # (AUTO) 0.3 K/uL (0.0-0.4); HEMATOCRIT 34.7 % (36-48); HEMOGLOBIN 11.8 g/dL (12.0-16.0); LYMPHOCYTES # (AUTO) 1.6 K/uL (1.0-5.5); LYMPHOCYTES % (AUTO) 17.3 % (20.5-51.5); MEAN CORPUSCULAR HEMOGLOBIN 28 pg (27-31); MEAN CORPUSCULAR HGB CONC 34 % (32-36); MEAN CORPUSCULAR VOLUME 83 fL (79.0-98.0); MONOCYTES # (AUTO) 0.6 K/uL (0.0-1.0); MONOCYTES % (AUTO) 6.7 % (1.7-9.3); NEUTROPHILS # (AUTO) 6.8 K/uL (1.8-7.7); NEUTROPHILS % (AUTO) 72.1 % (40.0-70.0); PLATELET COUNT (AUTO) 359 K/uL (130-430); RED BLOOD CELL COUNT(AUTO) 4.18 MIL/uL (4.2-6.2); RED CELL DISTRIBUTION WIDTH 14.7 % (9.0-15.0); WHITE BLOOD COUNT (AUTO) 9.4 K/uL (4.8-10.8)
[2021-04-12 12:57] LABS: ANION GAP 9 (5-15); CALCIUM 9.3 mg/dL (8.4-11.0); CHLORIDE 105 mmol/L (98-107); CREATININE 0.94 mg/dL (0.55-1.30); GLUCOSE 91 mg/dL (70-99); SODIUM SERUM 140 mmol/L (136-145); UREA NITROGEN, BLOOD 16 mg/dL (8-21)
[2021-04-12 13:06] LABS: ALANINE AMINOTRANSFERASE 26 U/L (12-78); ALBUMIN 3.1 g/dL (3.4-4.8); ASPARTATE AMINOTRANSFERASE 40 U/L (10-37); TOTAL BILIRUBIN 0.2 mg/dL (0.0-1.0)
[2021-04-12 13:07] LABS: INR 1.1 (0.8-1.2)
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
== END 2021-04-12 13:45 | disposition home or self-care (01) ==
LOC: SED 10:04
DX: G45.9 Transient cerebral ischemic attack, unspecified (principal); I10 Essential (primary) hypertension; E11.9 Type 2 diabetes mellitus without complications; E78.00 Pure hypercholesterolemia, unspecified; Z88.1 Allergy status to other antibiotic agents; Z88.5 Allergy status to narcotic agent; Z79.899 Other long term (current) drug therapy; Z79.4 Long term (current) use of insulin
CPT/HCPCS: 36415; 70450-TC; 71045; 76376; 80053; 82962; 84484; 85025; 85610-TC; 85730-TC; 93005; 99285

== ENCOUNTER 2021-07-25 18:16 | Emergency (ER) | payer OTHER, BC ==
[~2021-07-25] VITALS: Ht 170.2 cm; Wt 90.7 kg
--- NOTE | 2021-07-25 18:25 | NUR ---
Patient to ER bed 08 to gown for evaluation. Side rails up.
[2021-07-25 18:26] VITALS: BP_SYST 180
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
--- NOTE | 2021-07-25 18:55 | NUR ---
DR THOMAS AT BEDSIDE FOR EVALUATION, SHORTLY AFTER, PT AND SPOUSE ELOPED FROM ER.
== END 2021-07-25 19:01 | disposition left against medical advice (07) ==
LOC: SED 18:16
DX: S09.90XA Unspecified injury of head, initial encounter (principal); I10 Essential (primary) hypertension; E11.9 Type 2 diabetes mellitus without complications; Z88.1 Allergy status to other antibiotic agents; Z88.6 Allergy status to analgesic agent; W22.8XXA Striking against or struck by other objects, initial encounter; Y93.89 Activity, other specified; Y92.89 Other specified places as the place of occurrence of the external cause; Y99.8 Other external cause status
CPT/HCPCS: 99281; 99283

== ENCOUNTER 2022-09-22 12:43 | Emergency (ER) | payer OTHER, BC ==
[~2022-09-22 12:43] MED LIST changes: +SIMV-343 PO; -SIMV20TA2 PO
[2022-09-22 13:29] VITALS: BP_SYST 123
--- NOTE | 2022-09-22 13:48 | NUR ---
PT TRIAGED. PT STABLE. PT PLACED IN ROOM 6, REPORT GIVEN TO CAROLINA CALHOUN.
--- NOTE | 2022-09-22 14:00 | NUR ---
PATIENT BIB DAUGHTER, PATIENT SPEAKS FARSI, DAUGHTER IS TRANSLATING & IS ALSO PRIMARY CAREGIVER (PCG). DAUGHTER STATER PATIENT HAS BEEN C/O SHARP LEFT FLANK PAIN 7/10 X 3-4 DAYS, ACCOMPANIED BY COUGHING & THEN VOMITING AFTER INTAKE OF ANY FOOD OR DRINK. PCG STATES BM HAVE BEEN REGULAR. TODAY, PCG GAVE PATIENT HER INSULIN PRIOR TO ATTEMTING TO FEED HER & THEN PATIENT VOMITED. PATIENT BLOOD SUGAR 55 UPON ARRIVAL TO ED. MED HX DM, HTN. ALLERGY TO ARYTHOMYCIN, CIPRO. VSS.
--- NOTE | 2022-09-22 14:25 | NUR ---
DOCTOR AT BEDSIDE
[2022-09-22] MEDS ORDERED: DEXTROSE 50% JECT 50 ML DISP.SYRIN IVP ONE (14:30)
[2022-09-22] MEDS ORDERED: NACL 0.9% 1,000 ML IV ONE (14:30)
[2022-09-22] MEDS ORDERED: ONDANSETRON HCL 4 MG/2 ML VIAL IVP ONE (14:30)
[2022-09-22] MEDS ORDERED: KETOROLAC TROMETHAMINE 30 MG VIAL IVP ONE (14:30)
--- NOTE | 2022-09-22 14:45 | NUR ---
accucheck: blood sugar 58 reported to
--- NOTE | 2022-09-22 15:10 | NUR ---
# 22 gauge angiocath placed to LAC. Use of asceptic technique. Opsite placed over site. Blood return noted. Blood for lab drawn from site. Flushed with 10 cc of normal saline. No evidence of infiltration noted. Patient tolerated well.
[2022-09-22 15:17] LABS: BASOPHILS # (AUTO) 0.1 K/uL (0.0-0.2); BASOPHILS % (AUTO) 0.8 % (0.0-2.0); EOSINOPHILS # (AUTO) 0.1 K/uL (0.0-0.4); EOSINOPHILS % (AUTO) 0.9 % (0.0-4.0); HEMOGLOBIN 12.7 g/dL (12.0-16.0); LYMPHOCYTES # (AUTO) 1.6 K/uL (1.0-5.5); LYMPHOCYTES % (AUTO) 12.3 % (20.5-51.5); MEAN CORPUSCULAR HEMOGLOBIN 29 pg (27-31); MEAN CORPUSCULAR HGB CONC 34 % (32-36); MEAN CORPUSCULAR VOLUME 87 fL (79.0-98.0); MONOCYTES # (AUTO) 1.1 K/uL (0.0-1.0); MONOCYTES % (AUTO) 8.7 % (1.7-9.3); NEUTROPHILS % (AUTO) 77.3 % (40.0-70.0); PLATELET COUNT (AUTO) 350 K/uL (130-430); RED BLOOD CELL COUNT(AUTO) 4.37 MIL/uL (4.2-6.2); RED CELL DISTRIBUTION WIDTH 14.8 % (9.0-15.0)
[2022-09-22 15:31] LABS: ANION GAP 7 (5-15); CALCIUM 9.2 mg/dL (8.4-11.0); CHLORIDE 97 mmol/L (98-107); CREATININE 0.95 mg/dL (0.55-1.30); GLUCOSE 57 mg/dL (70-99); UREA NITROGEN, BLOOD 19 mg/dL (8-21)
[2022-09-22 15:37] LABS: ALANINE AMINOTRANSFERASE 31 U/L (12-78); ALBUMIN 3.5 g/dL (3.4-4.8); ASPARTATE AMINOTRANSFERASE 39 U/L (10-37); LIPASE 97 U/L (73-393); TOTAL BILIRUBIN 0.5 mg/dL (0.0-1.0)
[2022-09-22] MEDS ORDERED: FAMOTIDINE 20 MG TABLET PO ONE (17:45)
[2022-09-22] MEDS ORDERED: MAG-AL HYDROX/SIMETH 30 ML UDC PO ONE (17:45)
[2022-09-22 17:57] LABS: BILIRUBIN,URINE NEGATIVE (NEGATIVE); BLOOD, URINE NEGATIVE (NEGATIVE); CLARITY/URINE CLOUDY (CLEAR); COLOR,URINE YELLOW (YELLOW); GLUCOSE,URINE TRACE (NEGATIVE); KETONES,URINE NEGATIVE (NEGATIVE); LEUKOCYTE ESTERASE ,URINE 2+ (NEGATIVE); NITRITE, URINE POSITIVE (NEGATIVE); PH,URINE 6.5 (5.0-8.0); PROTEIN URINE TRACE (NEGATIVE); UROBILINOGEN,URINE 0.2 (0.2-1.0)
[2022-09-22 18:13] LABS: BACTERIA,URINE MANY /HPF (None Seen); MUCUS,URINE None Seen /LPF (None Seen); RBC,URINE 0-3 /HPF (0-3); WBC,URINE >100 /HPF (0-3)
[2022-09-22] MEDS ORDERED: CEPH-548 PO (18:22)
[2022-09-22] MEDS ORDERED: FAMO40TA71 PO (18:22)
[2022-09-22] MEDS ORDERED: SUCR1TAB2 PO (18:22)
[2022-09-22] MEDS ORDERED: ONDA-8 TL (18:22)
[2022-09-22 18:29] VITALS: BP_SYST 132
--- NOTE | 2022-09-22 18:29 | NUR ---
Patient given written and verbal discharge instructions and verbalizes understanding. ER MD discussed with patient the results and treatment provided. Patient in stable condition. ID arm band removed. IV catheter removed intact and dressing applied, no active bleeding. Rx of KEFLEX, PEPCID, ZOFRAN, CARAFATE given. Patient educated on pain management and to follow up with PMD. Pain Scale 3/10. Opportunity for questions provided and answered. Medication side effect fact sheet provided.
== END 2022-09-22 18:29 | disposition home or self-care (01) ==
LOC: SED 12:43
DX: K29.80 Duodenitis without bleeding (principal); N39.0 Urinary tract infection, site not specified; R10.9 Unspecified abdominal pain; R11.10 Vomiting, unspecified; E11.9 Type 2 diabetes mellitus without complications; I10 Essential (primary) hypertension; Z88.1 Allergy status to other antibiotic agents; Z88.6 Allergy status to analgesic agent; Z79.4 Long term (current) use of insulin; Z85.3 Personal history of malignant neoplasm of breast; Z79.899 Other long term (current) drug therapy
CPT/HCPCS: 99285; 74176; 96374; 96375; 96361; 80053; 81000; 82962; 83690; 85025; 87086; 84484; 36415; 76376; J1885; J2405; J7030

== ENCOUNTER 2023-05-15 15:21 | Inpatient (IN) | payer OTHER, BC ==
[~2023-05-15] VITALS: Ht 167.6 cm; Wt 85.3 kg
[2023-05-15 15:21] VITALS: BP_SYST 144; PULSE 99; RESP 18; TEMP 97.5; O2SAT 97
[~2023-05-15 15:21] MED LIST changes: +CEPH-548 PO; +FAMO40TA71 PO; +LOSA-413 PO; -LOSA50TA3 PO; +ONDA-8 TL; +SUCR1TAB2 PO
[2023-05-15] MEDS: NACL 0.9% 1,000 ML IV ONE ×2 (17:20→22:18)
[2023-05-15] MEDS: DIPHENHYDRAMINE INJ 50 MG/ML VIAL IVP ONE (17:21)
[2023-05-15] MEDS: METOCLOPRAMIDE HCL 10 MG/2 ML VIAL IVP ONE (17:21)
[2023-05-15] MEDS: ONDANSETRON HCL 4 MG/2 ML VIAL IVP ONE (17:22)
[2023-05-15 17:30] LABS: EOSINOPHILS # (AUTO) 0.1 K/uL (0.0-0.4); EOSINOPHILS % (AUTO) 0.7 % (0.0-4.0); HEMATOCRIT 31.1 % (36-48); HEMOGLOBIN 10.6 g/dL (12.0-16.0); LYMPHOCYTES # (AUTO) 0.8 K/uL (1.0-5.5); LYMPHOCYTES % (AUTO) 7.5 % (20.5-51.5); MEAN CORPUSCULAR HEMOGLOBIN 30 pg (27-31); MEAN CORPUSCULAR HGB CONC 34 % (32-36); MEAN CORPUSCULAR VOLUME 87 fL (79.0-98.0); MONOCYTES # (AUTO) 1.2 K/uL (0.0-1.0); MONOCYTES % (AUTO) 11.5 % (1.7-9.3); NEUTROPHILS # (AUTO) 8.6 K/uL (1.8-7.7); NEUTROPHILS % (AUTO) 80.3 % (40.0-70.0); PLATELET COUNT (AUTO) 215 K/uL (130-430); RED BLOOD CELL COUNT(AUTO) 3.59 MIL/uL (4.2-6.2); RED CELL DISTRIBUTION WIDTH 15.1 % (9.0-15.0); WHITE BLOOD COUNT (AUTO) 10.7 K/uL (4.8-10.8)
[2023-05-15 17:38] LABS: INR 1.1 (0.8-1.2); PROTHROMBIN TIME 11.7 SECS (9.5-12.5)
[2023-05-15 17:46] LABS: ALANINE AMINOTRANSFERASE 22 U/L (12-78); ALBUMIN 2.3 g/dL (3.4-4.8); ANION GAP 9 (5-15); ASPARTATE AMINOTRANSFERASE 43 U/L (10-37); CALCIUM 8.5 mg/dL (8.4-11.0); CARBON DIOXIDE 24 mmol/L (23-29); CHLORIDE 103 mmol/L (98-107); CREATININE 2.19 mg/dL (0.55-1.30); GLUCOSE 281 mg/dL (74-106); POTASSIUM 4.9 mmol/L (3.5-5.1); SODIUM SERUM 136 mmol/L (136-145); TOTAL BILIRUBIN 0.8 mg/dL (0.0-1.0); TOTAL PROTEIN, SERUM 6.7 g/dL (6.4-8.3); UREA NITROGEN, BLOOD 51 mg/dL (8-21)
[2023-05-15 17:49] LABS: BILIRUBIN,DIRECT 0.3 mg/dL (0.0-0.3)
[2023-05-15] MEDS ORDERED: ACETAMINOPHEN 500 MG TABLET ONE (19:13)
[2023-05-15] MEDS: ACETAMINOPHEN 500 MG TABLET PO ONE (19:18)
[2023-05-15] MEDS ORDERED: cefTRIAXone 2 GM VIAL ONE (20:41)
[2023-05-15 21:06] LABS: BILIRUBIN,URINE NEGATIVE (NEGATIVE); CLARITY/URINE CLOUDY (CLEAR); COLOR,URINE YELLOW (YELLOW); GLUCOSE,URINE NEGATIVE (NEGATIVE); KETONES,URINE NEGATIVE (NEGATIVE); PROTEIN URINE 3+ (NEGATIVE)
[2023-05-15 21:07] LABS: BLOOD, URINE 3+ (NEGATIVE); LEUKOCYTE ESTERASE ,URINE 3+ (NEGATIVE); NITRITE, URINE POSITIVE (NEGATIVE); UROBILINOGEN,URINE 0.2 (0.2-1.0)
[2023-05-15 21:08] LABS: BACTERIA,URINE MANY /HPF (None Seen); MUCUS,URINE None Seen /LPF (None Seen); WBC,URINE >100 /HPF (0-3)
[2023-05-15] MEDS ORDERED: ZOLPIDEM TARTRATE 5 MG TABLET PO PRN (21:45)
[2023-05-15] MEDS ORDERED: traMADol HCL HCL 50 MG TABLET (ULTRAM) PO PRN (21:45)
[2023-05-15] MEDS ORDERED: DOCUSATE SODIUM 100 MG CAPSULE PO PRN (21:45)
[2023-05-15] MEDS ORDERED: hydrALAZINE HCL 20 MG/ML VIAL IVP PRN (21:45)
[2023-05-15] MEDS ORDERED: MUPIROCIN 2% TOPICAL OINTMENT 22 GM NS PRN (21:45)
[2023-05-15] MEDS ORDERED: MAGNESIUM SULFATE 50 ML IV PRN (21:45)
[2023-05-15] MEDS ORDERED: MELO-89 PO (21:49)
[2023-05-15] MEDS: ACETAMINOPHEN 325 MG TABLET PO PRN (22:14)
[2023-05-15 23:00] VITALS: BP_SYST 125; PULSE 0; RESP 16; TEMP 100; O2SAT 94
[2023-05-16] VITALS (15 sets, daily range): BP systolic 77–119; PULSE 88–108; RESP 24–34; TEMP 96.3–98.7; O2SAT 94–100
[2023-05-16] MEDS: DEXTROSE 50% JECT 50 ML DISP.SYRIN IVP PRN (01:48)
[2023-05-16] MEDS: D5/0.45 NS 1,000 ML IV SCH (02:14)
[2023-05-16 03:52] LABS: ANION GAP 19 (5-15); CARBON DIOXIDE 17 mmol/L (23-29); CHLORIDE 105 mmol/L (98-107); CREATININE 2.71 mg/dL (0.55-1.30); GLUCOSE 66 mg/dL (74-106); POTASSIUM 3.8 mmol/L (3.5-5.1); SODIUM SERUM 141 mmol/L (136-145); UREA NITROGEN, BLOOD 51 mg/dL (8-21)
[2023-05-16 03:53] LABS: BASOPHILS % (AUTO) 0.2 % (0.0-2.0); EOSINOPHILS % (AUTO) 1.1 % (0.0-4.0); HEMATOCRIT 33.2 % (36-48); LYMPHOCYTES # (AUTO) 0.3 K/uL (1.0-5.5); LYMPHOCYTES % (AUTO) 5.8 % (20.5-51.5); MEAN CORPUSCULAR HEMOGLOBIN 29 pg (27-31); MEAN CORPUSCULAR HGB CONC 33 % (32-36); MEAN CORPUSCULAR VOLUME 87 fL (79.0-98.0); MONOCYTES # (AUTO) 0.1 K/uL (0.0-1.0); MONOCYTES % (AUTO) 1.1 % (1.7-9.3); NEUTROPHILS # (AUTO) 4.1 K/uL (1.8-7.7); NEUTROPHILS % (AUTO) 91.8 % (40.0-70.0); PLATELET COUNT (AUTO) 141 K/uL (130-430); RED BLOOD CELL COUNT(AUTO) 3.82 MIL/uL (4.2-6.2); RED CELL DISTRIBUTION WIDTH 15.2 % (9.0-15.0); WHITE BLOOD COUNT (AUTO) 4.5 K/uL (4.8-10.8)
[2023-05-16] MEDS: NACL 0.9% 1,000 ML IV ONE ×2 (04:33→05:15)
[2023-05-16] MEDS: NOREPINEPHRINE 4 MG/4 ML VIAL IV ONE ×2 (06:37→08:07)
[2023-05-16] MEDS ORDERED: PIPERACILLIN/TAZO 3.375/DEX-IS 50 ML IV SCH (07:15)
[2023-05-16] MEDS: NOREPINEPHRINE BITARTRATE 4 MG in D5W 246 ML IV PRN (08:09)
[2023-05-16 08:57] LABS: INR 1.7 (0.8-1.2); PROTHROMBIN TIME 17.2 SECS (9.5-12.5)
[2023-05-16] MEDS ORDERED: LOSARTAN POTASSIUM 50 MG TABLET (COZAAR) PO SCH (09:00)
[2023-05-16] MEDS: ALBUMIN HUMAN 5% 500 ML IV ONE (09:06)
[2023-05-16] MEDS: PIPERACILLIN/TAZO 2.25G/DEX-IS 50 ML IV SCH (09:17)
[2023-05-16] MEDS: ALBUMIN HUMAN 25% 50 ML IV SCH (11:35)
[2023-05-16] MEDS: SODIUM BICARBONATE 8.4% JECT 50 MEQ in D5/0.45 NS 1,000 ML IV SCH (17:27)
[2023-05-16] MEDS: INSULIN LISPRO SLIDING SCALE 100 UNITS/ML, 3 ML VIAL (humaLOG) SUBCUT PRN (17:44)
[2023-05-16] MEDS: ATORVASTATIN 10 MG TABLET PO SCH (21:00)
[2023-05-16] MEDS ORDERED: cefTRIAXone 1 GM IVPB PREMIX 50 ML IV SCH (21:00)
[2023-05-16] MEDS: NOREPINEPHR 4 MG/250 mL NS 250 ML IV PRN (23:21)
[2023-05-17] VITALS (31 sets, daily range): BP systolic 79–142; PULSE 63–134; RESP 21–36; TEMP 97–100.3; O2SAT 92–99
[2023-05-17 06:37] LABS: HEMATOCRIT 29.8 % (36-48); HEMOGLOBIN 9.8 g/dL (12.0-16.0); MEAN CORPUSCULAR HEMOGLOBIN 29 pg (27-31); MEAN CORPUSCULAR HGB CONC 33 % (32-36); MEAN CORPUSCULAR VOLUME 87 fL (79.0-98.0); PLATELET COUNT (AUTO) 106 K/uL (130-430); RED BLOOD CELL COUNT(AUTO) 3.44 MIL/uL (4.2-6.2)
[2023-05-17 06:39] LABS: ALANINE AMINOTRANSFERASE 61 U/L (12-78); ALBUMIN 2.4 g/dL (3.4-4.8); ANION GAP 16 (5-15); ASPARTATE AMINOTRANSFERASE 157 U/L (10-37); CALCIUM 8.5 mg/dL (8.4-11.0); CARBON DIOXIDE 20 mmol/L (23-29); CHLORIDE 103 mmol/L (98-107); CHOLESTEROL 103 mg/dL (<200); CREATININE 2.53 mg/dL (0.55-1.30); GLUCOSE 323 mg/dL (74-106); HDL CHOLESTEROL 16 mg/dL (>55); POTASSIUM 4.3 mmol/L (3.5-5.1); SODIUM SERUM 139 mmol/L (136-145); TOTAL PROTEIN, SERUM 5.8 g/dL (6.4-8.3); TRIGLYCERIDES 182 mg/dL (30-150); UREA NITROGEN, BLOOD 50 mg/dL (8-21); WHITE BLOOD COUNT (AUTO) 37.1 K/uL (4.8-10.8)
[2023-05-17] MEDS ORDERED: VANCOMYCIN HCL 1.25 GM/NS 250 ML IV SCH (09:00)
[2023-05-17] MEDS ORDERED: VASOPRESSIN 40 UNITS in NS 38 ML IV PRN (09:30)
[2023-05-17] MEDS ORDERED: ETOMIDATE 20 MG/ 10 ML VIAL (AMIDATE) ONE (09:45)
[2023-05-17] MEDS ORDERED: ROCURONIUM BROMIDE 10 MG/ML (ZEMURON) ONE (09:45)
[2023-05-17] MEDS: KETOROLAC TROMETHAMINE 15 MG VIAL IVP ONE (10:00)
[2023-05-17] MEDS ORDERED: IPRATROPIUM/ALBUTEROL SULFATE 3 ML AMPUL.NEB (DUONEB) INH PRN (10:15)
[2023-05-17] MEDS: IPRATROPIUM/ALBUTEROL SULFATE 3 ML AMPUL.NEB (DUONEB) INH SCH (11:06)
[2023-05-17 11:09] LABS: ABG O2 SAT% ESTIMATE 99.1 % (94.0-100.0); BLOOD GAS PH 7.359 (7.350-7.450); BLOOD GAS PO2 165.6 mmHg (75.0-100.0)
[2023-05-17 11:36] LABS: ALLEN'S TEST POSITIVE (P); BLOOD GAS BASE EXCESS -7.9 mmol/L (-3.0-3.0)
[2023-05-17] MEDS: MEROPENEM 500 MG in NS 50 ML IV SCH (11:47)
[2023-05-17] MEDS: PROPOFOL DRIP 100 ML IV PRN (11:48)
[2023-05-17] MEDS: FENTANYL CITRATE-0.9 % NACL/PF 100 ML IV PRN (11:53)
[2023-05-17 13:54] LABS: BAND % (MANUAL) 19 % (0-6); BASOPHILS % (MANUAL) 0 % (0-2); EOSINOPHILS % (MANUAL) 0 % (0-7); MONOCYTES % (MANUAL) 10 % (0-11)
[2023-05-17 13:55] LABS: LYMPHOCYTES % (MANUAL) 9 % (20-46)
[2023-05-17] MEDS: LORazepam 2 MG/ML VIAL IVP ONE (14:00)
[2023-05-17] MEDS: NOREPINEPHR 16 MG/250 mL NS 250 ML IV PRN (16:05)
[2023-05-17] MEDS: ACETAMINOPHEN 650 MG SUPP.RECT RC PRN (18:58)
[2023-05-17] MEDS: HEPARIN SODIUM,PORCINE 5,000 UNITS/ML VIAL SUBCUT SCH (21:25)
[2023-05-18] VITALS (39 sets, daily range): BP systolic 74–152; PULSE 64–128; RESP 13–31; TEMP 98.2–102; O2SAT 82–100
[2023-05-18 06:26] LABS: BASOPHILS # (AUTO) 0.1 K/uL (0.0-0.2); LYMPHOCYTES # (AUTO) 2.3 K/uL (1.0-5.5)
[2023-05-18 06:56] LABS: BASOPHILS % (AUTO) 0.1 % (0.0-2.0); EOSINOPHILS # (AUTO) 0.6 K/uL (0.0-0.4); EOSINOPHILS % (AUTO) 1.3 % (0.0-4.0); HEMATOCRIT 34.2 % (36-48); HEMOGLOBIN 11.2 g/dL (12.0-16.0); MEAN CORPUSCULAR HEMOGLOBIN 28 pg (27-31); MEAN CORPUSCULAR HGB CONC 33 % (32-36); MEAN CORPUSCULAR VOLUME 85 fL (79.0-98.0); MONOCYTES # (AUTO) 0.7 K/uL (0.0-1.0); MONOCYTES % (AUTO) 1.5 % (1.7-9.3); NEUTROPHILS # (AUTO) 42.2 K/uL (1.8-7.7); PLATELET COUNT (AUTO) 115 K/uL (130-430); RED BLOOD CELL COUNT(AUTO) 4.03 MIL/uL (4.2-6.2)
[2023-05-18 07:00] LABS: ALANINE AMINOTRANSFERASE 53 U/L (12-78); ALBUMIN 1.9 g/dL (3.4-4.8); ANION GAP 14 (5-15); ASPARTATE AMINOTRANSFERASE 80 U/L (10-37); CALCIUM 8.3 mg/dL (8.4-11.0); CARBON DIOXIDE 19 mmol/L (23-29); CHLORIDE 106 mmol/L (98-107); CREATININE 2.69 mg/dL (0.55-1.30); GLUCOSE 324 mg/dL (74-106); SODIUM SERUM 139 mmol/L (136-145); TOTAL PROTEIN, SERUM 5.5 g/dL (6.4-8.3); UREA NITROGEN, BLOOD 60 mg/dL (8-21)
[2023-05-18 07:52] LABS: WHITE BLOOD COUNT (AUTO) 45.8 K/uL (4.8-10.8)
[2023-05-18 07:53] LABS: NEUTROPHILS % (AUTO) 92.1 % (40.0-70.0)
[2023-05-18] MEDS: fentaNYL CITRATE/PF 100 MCG/2 ML AMP ONE (10:10)
[2023-05-18] MEDS: MIDAZOLAM HCL 5 MG/5 ML VIAL ONE (10:11)
[2023-05-18] MEDS ORDERED: CHOL500013 PO (11:31)
[2023-05-18] MEDS ORDERED: ASCO500T20 PO (11:41)
[2023-05-18] MEDS ORDERED: AMLO5TAB4 PO (11:41)
[2023-05-18] MEDS ORDERED: ZINC50TA15 PO (11:41)
[2023-05-18] MEDS ORDERED: MELA5TAB21 PO (11:41)
[2023-05-18] MEDS ORDERED: MULT-1164 PO (11:41)
[2023-05-18] MEDS ORDERED: KRIL500C PO (11:41)
[2023-05-18] MEDS ORDERED: CLOP75TA32 PO (11:41)
[2023-05-18] MEDS ORDERED: VITA400T9 PO (11:41)
[2023-05-18] MEDS ORDERED: CYAN500011 PO (11:41)
[2023-05-18] MEDS ORDERED: CRAN500T4 PO (11:41)
[2023-05-18] MEDS ORDERED: CINN500T PO (11:41)
[2023-05-18] MEDS ORDERED: ASPI-859 PO (11:41)
[2023-05-18] MEDS ORDERED: EMPA25TA PO (11:41)
[2023-05-18] MEDS ORDERED: PYRI100T22 PO (11:41)
[2023-05-18] MEDS ORDERED: COFF1CAP3 PO (11:41)
[2023-05-18] MEDS ORDERED: TURM1CAP PO (11:47)
[2023-05-18] MEDS ORDERED: BEMP1TAB PO (11:47)
[2023-05-18] MEDS ORDERED: LIDOCAINE 1%, 20 ML MDV 20 ML ONE (12:26)
[2023-05-18] MEDS: metroNIDAZOLE 500 mg/NS 100 ML IV SCH (20:13)
[2023-05-19] VITALS (40 sets, daily range): BP systolic 90–189; PULSE 67–94; RESP 17–25; TEMP 97.6–99.9; O2SAT 95–100
[2023-05-19 06:11] LABS: EOSINOPHILS # (AUTO) 0.2 K/uL (0.0-0.4); EOSINOPHILS % (AUTO) 0.7 % (0.0-4.0); HEMATOCRIT 34.7 % (36-48); HEMOGLOBIN 11.5 g/dL (12.0-16.0); LYMPHOCYTES % (AUTO) 8.4 % (20.5-51.5); MEAN CORPUSCULAR HEMOGLOBIN 28 pg (27-31); MEAN CORPUSCULAR HGB CONC 33 % (32-36); MEAN CORPUSCULAR VOLUME 85 fL (79.0-98.0); MONOCYTES # (AUTO) 1.2 K/uL (0.0-1.0); MONOCYTES % (AUTO) 3.4 % (1.7-9.3); NEUTROPHILS % (AUTO) 87.5 % (40.0-70.0); PLATELET COUNT (AUTO) 69 K/uL (130-430); RED BLOOD CELL COUNT(AUTO) 4.09 MIL/uL (4.2-6.2); RED CELL DISTRIBUTION WIDTH 16.1 % (9.0-15.0)
[2023-05-19 06:32] LABS: ANION GAP 11 (5-15); CALCIUM 8.1 mg/dL (8.4-11.0); CARBON DIOXIDE 20 mmol/L (23-29); CHLORIDE 108 mmol/L (98-107); CREATININE 2.79 mg/dL (0.55-1.30); GLUCOSE 280 mg/dL (74-106); POTASSIUM 4.4 mmol/L (3.5-5.1); SODIUM SERUM 139 mmol/L (136-145); UREA NITROGEN, BLOOD 72 mg/dL (8-21)
[2023-05-19 07:39] LABS: WHITE BLOOD COUNT (AUTO) 35.4 K/uL (4.8-10.8)
[2023-05-19] MEDS: FUROSEMIDE 20 MG/2 ML VIAL IVP ONE ×2 (17:41)
[2023-05-20] VITALS (33 sets, daily range): BP systolic 105–146; PULSE 53–103; RESP 21–33; TEMP 97.2–98; O2SAT 94–99
[2023-05-20 06:51] LABS: BASOPHILS # (AUTO) 0.1 K/uL (0.0-0.2); BASOPHILS % (AUTO) 0.3 % (0.0-2.0); EOSINOPHILS # (AUTO) 0.3 K/uL (0.0-0.4); EOSINOPHILS % (AUTO) 1.8 % (0.0-4.0); HEMOGLOBIN 11.5 g/dL (12.0-16.0); LYMPHOCYTES # (AUTO) 1.7 K/uL (1.0-5.5); LYMPHOCYTES % (AUTO) 9.7 % (20.5-51.5); MEAN CORPUSCULAR HEMOGLOBIN 28 pg (27-31); MEAN CORPUSCULAR HGB CONC 33 % (32-36); MEAN CORPUSCULAR VOLUME 86 fL (79.0-98.0); MONOCYTES # (AUTO) 0.8 K/uL (0.0-1.0); MONOCYTES % (AUTO) 4.4 % (1.7-9.3); NEUTROPHILS % (AUTO) 83.8 % (40.0-70.0); RED BLOOD CELL COUNT(AUTO) 4.09 MIL/uL (4.2-6.2); RED CELL DISTRIBUTION WIDTH 16.1 % (9.0-15.0)
[2023-05-20 07:17] LABS: ALANINE AMINOTRANSFERASE 36 U/L (12-78); ALBUMIN 1.5 g/dL (3.4-4.8); ANION GAP 11 (5-15); ASPARTATE AMINOTRANSFERASE 39 U/L (10-37); CALCIUM 8.4 mg/dL (8.4-11.0); CARBON DIOXIDE 23 mmol/L (23-29); CHLORIDE 106 mmol/L (98-107); CREATININE 2.41 mg/dL (0.55-1.30); POTASSIUM 3.9 mmol/L (3.5-5.1); SODIUM SERUM 140 mmol/L (136-145); TOTAL BILIRUBIN 1.2 mg/dL (0.0-1.0); TOTAL PROTEIN, SERUM 5.2 g/dL (6.4-8.3); UREA NITROGEN, BLOOD 72 mg/dL (8-21)
[2023-05-20 07:20] LABS: GLUCOSE 409 mg/dL (74-106)
[2023-05-20 08:31] LABS: WHITE BLOOD COUNT (AUTO) 17.9 K/uL (4.8-10.8)
[2023-05-20 08:43] LABS: TOTAL IRON BIND. CAPACITY 130 ug/dL (250-450)
[2023-05-20] MEDS: 0.45% NACL 1,000 ML IV SCH (08:53)
[2023-05-20] MEDS: FUROSEMIDE 40 MG/4 ML VIAL IVP ONE (09:18)
[2023-05-20 10:10] LABS: PLATELET COUNT (AUTO) 51 K/uL (130-430)
[2023-05-20] MEDS: AMMONIUM LACTATE 12%, 400 ML LOTION TP SCH (20:38)
[2023-05-21] VITALS (36 sets, daily range): BP systolic 85–126; PULSE 58–119; RESP 20–34; TEMP 97.6–98; O2SAT 95–100
[2023-05-21 06:19] LABS: ANION GAP 13 (5-15); CALCIUM 8.4 mg/dL (8.4-11.0); CARBON DIOXIDE 22 mmol/L (23-29); CHLORIDE 110 mmol/L (98-107); CREATININE 1.88 mg/dL (0.55-1.30); GLUCOSE 233 mg/dL (74-106); POTASSIUM 3.7 mmol/L (3.5-5.1); SODIUM SERUM 145 mmol/L (136-145); UREA NITROGEN, BLOOD 68 mg/dL (8-21)
[2023-05-21 06:31] LABS: BASOPHILS % (AUTO) 0.4 % (0.0-2.0); EOSINOPHILS # (AUTO) 0.5 K/uL (0.0-0.4); EOSINOPHILS % (AUTO) 3.9 % (0.0-4.0); HEMATOCRIT 32.5 % (36-48); HEMOGLOBIN 10.9 g/dL (12.0-16.0); LYMPHOCYTES # (AUTO) 1.8 K/uL (1.0-5.5); LYMPHOCYTES % (AUTO) 14.2 % (20.5-51.5); MEAN CORPUSCULAR HEMOGLOBIN 28 pg (27-31); MEAN CORPUSCULAR HGB CONC 34 % (32-36); MEAN CORPUSCULAR VOLUME 83 fL (79.0-98.0); MONOCYTES # (AUTO) 0.7 K/uL (0.0-1.0); MONOCYTES % (AUTO) 5.6 % (1.7-9.3); NEUTROPHILS # (AUTO) 9.7 K/uL (1.8-7.7); NEUTROPHILS % (AUTO) 75.9 % (40.0-70.0); PLATELET COUNT (AUTO) 53 K/uL (130-430); RED BLOOD CELL COUNT(AUTO) 3.92 MIL/uL (4.2-6.2); RED CELL DISTRIBUTION WIDTH 15.6 % (9.0-15.0); WHITE BLOOD COUNT (AUTO) 12.8 K/uL (4.8-10.8)
[2023-05-21] MEDS: FUROSEMIDE 40 MG/4 ML VIAL IVP SCH (08:58)
[2023-05-21 09:59] LABS: INR 1.2 (0.8-1.2); PROTHROMBIN TIME 12.5 SECS (9.5-12.5)
[2023-05-21] MEDS: CEFEPIME 2 GM in D5W 100 ML IV SCH (12:09)
[2023-05-21] MEDS: ALBUMIN HUMAN 25% 100 ML IV ONE (16:08)
[2023-05-22] VITALS (33 sets, daily range): BP systolic 90–161; PULSE 56–97; RESP 20–31; TEMP 97.8–98.3; O2SAT 91–100
[2023-05-22] MEDS: LORazepam 2 MG/ML VIAL IVP PRN (00:54)
[2023-05-22 05:52] LABS: BASOPHILS % (AUTO) 0.1 % (0.0-2.0); EOSINOPHILS # (AUTO) 0.2 K/uL (0.0-0.4); EOSINOPHILS % (AUTO) 1.1 % (0.0-4.0); HEMATOCRIT 25.2 % (36-48); HEMOGLOBIN 8.5 g/dL (12.0-16.0); LYMPHOCYTES # (AUTO) 1.5 K/uL (1.0-5.5); LYMPHOCYTES % (AUTO) 9.6 % (20.5-51.5); MEAN CORPUSCULAR HEMOGLOBIN 28 pg (27-31); MEAN CORPUSCULAR HGB CONC 34 % (32-36); MEAN CORPUSCULAR VOLUME 83 fL (79.0-98.0); MONOCYTES # (AUTO) 0.6 K/uL (0.0-1.0); MONOCYTES % (AUTO) 3.9 % (1.7-9.3); NEUTROPHILS # (AUTO) 13.7 K/uL (1.8-7.7); NEUTROPHILS % (AUTO) 85.3 % (40.0-70.0); RED BLOOD CELL COUNT(AUTO) 3.03 MIL/uL (4.2-6.2); RED CELL DISTRIBUTION WIDTH 15.4 % (9.0-15.0)
[2023-05-22 05:59] LABS: ANION GAP 14 (5-15); CALCIUM 8.1 mg/dL (8.4-11.0); CARBON DIOXIDE 20 mmol/L (23-29); CHLORIDE 110 mmol/L (98-107); GLUCOSE 221 mg/dL (74-106); POTASSIUM 3.8 mmol/L (3.5-5.1); SODIUM SERUM 144 mmol/L (136-145); UREA NITROGEN, BLOOD 81 mg/dL (8-21)
[2023-05-22 07:39] LABS: PLATELET COUNT (AUTO) 47 K/uL (130-430)
[2023-05-22 09:45] LABS: ABG O2 SAT% ESTIMATE 96.3 % (94.0-100.0); BLOOD GAS PCO2 24.6 mmHg (35.0-45.0); BLOOD GAS PH 7.445 (7.350-7.450); BLOOD GAS PO2 78.9 mmHg (75.0-100.0)
[2023-05-22 09:54] LABS: BLOOD GAS HCO3 16.5 mmol/L (21.0-27.0)
[2023-05-22 09:55] LABS: ALLEN'S TEST POSITIVE (P); BLOOD GAS BASE EXCESS -5.5 mmol/L (-3.0-3.0)
[2023-05-22] MEDS: NITROGLYCERIN 1 INCH (GM) OINT. TP SCH (10:53)
[2023-05-22] MEDS: FLUCONAZOLE 200 mg/ NS 100 ML IV SCH (13:02)
[2023-05-23] VITALS (47 sets, daily range): BP systolic 82–168; PULSE 47–104; RESP 18–36; TEMP 97.8–99.5; O2SAT 96–100
[2023-05-23 05:26] LABS: BASOPHILS # (AUTO) 0.1 K/uL (0.0-0.2); BASOPHILS % (AUTO) 0.4 % (0.0-2.0); EOSINOPHILS # (AUTO) 0.5 K/uL (0.0-0.4); EOSINOPHILS % (AUTO) 2.3 % (0.0-4.0); HEMOGLOBIN 9.4 g/dL (12.0-16.0); LYMPHOCYTES # (AUTO) 2.2 K/uL (1.0-5.5); LYMPHOCYTES % (AUTO) 10.3 % (20.5-51.5); MEAN CORPUSCULAR HEMOGLOBIN 28 pg (27-31); MEAN CORPUSCULAR HGB CONC 33 % (32-36); MEAN CORPUSCULAR VOLUME 84 fL (79.0-98.0); MONOCYTES # (AUTO) 1.1 K/uL (0.0-1.0); NEUTROPHILS # (AUTO) 17.8 K/uL (1.8-7.7); PLATELET COUNT (AUTO) 102 K/uL (130-430); RED BLOOD CELL COUNT(AUTO) 3.32 MIL/uL (4.2-6.2); WHITE BLOOD COUNT (AUTO) 21.7 K/uL (4.8-10.8)
[2023-05-23 05:45] LABS: ALANINE AMINOTRANSFERASE 18 U/L (12-78); ALBUMIN 1.9 g/dL (3.4-4.8); ANION GAP 14 (5-15); ASPARTATE AMINOTRANSFERASE 28 U/L (10-37); CALCIUM 8.2 mg/dL (8.4-11.0); CARBON DIOXIDE 19 mmol/L (23-29); CHLORIDE 110 mmol/L (98-107); CREATININE 2.24 mg/dL (0.55-1.30); GLUCOSE 243 mg/dL (74-106); POTASSIUM 3.8 mmol/L (3.5-5.1); SODIUM SERUM 143 mmol/L (136-145); TOTAL BILIRUBIN 1.6 mg/dL (0.0-1.0); TOTAL PROTEIN, SERUM 5.3 g/dL (6.4-8.3); UREA NITROGEN, BLOOD 87 mg/dL (8-21)
[2023-05-23 06:47] LABS: INR 1.3 (0.8-1.2); PROTHROMBIN TIME 13.4 SECS (9.5-12.5)
[2023-05-23] MEDS: FUROSEMIDE 40 MG/4 ML VIAL IVP SCH (09:23)
[2023-05-23] MEDS: MEROPENEM 500 MG IVPB PREMIX 50 ML IV ONE (11:39)
[2023-05-23] MEDS: MEROPENEM 500 MG IVPB PREMIX 50 ML IV SCH (21:30)
[2023-05-24] VITALS (33 sets, daily range): BP systolic 101–157; PULSE 55–113; RESP 21–28; TEMP 97.7–98.9; O2SAT 97–100
[2023-05-24 05:49] LABS: BASOPHILS # (AUTO) 0.1 K/uL (0.0-0.2); BASOPHILS % (AUTO) 0.4 % (0.0-2.0); EOSINOPHILS # (AUTO) 0.2 K/uL (0.0-0.4); EOSINOPHILS % (AUTO) 1.4 % (0.0-4.0); HEMATOCRIT 24.8 % (36-48); HEMOGLOBIN 8.3 g/dL (12.0-16.0); LYMPHOCYTES # (AUTO) 1.8 K/uL (1.0-5.5); LYMPHOCYTES % (AUTO) 11.4 % (20.5-51.5); MEAN CORPUSCULAR HEMOGLOBIN 28 pg (27-31); MEAN CORPUSCULAR HGB CONC 34 % (32-36); MEAN CORPUSCULAR VOLUME 84 fL (79.0-98.0); MONOCYTES # (AUTO) 0.8 K/uL (0.0-1.0); MONOCYTES % (AUTO) 5.3 % (1.7-9.3); NEUTROPHILS # (AUTO) 12.6 K/uL (1.8-7.7); NEUTROPHILS % (AUTO) 81.5 % (40.0-70.0); PLATELET COUNT (AUTO) 106 K/uL (130-430); RED BLOOD CELL COUNT(AUTO) 2.95 MIL/uL (4.2-6.2); RED CELL DISTRIBUTION WIDTH 15.7 % (9.0-15.0); WHITE BLOOD COUNT (AUTO) 15.5 K/uL (4.8-10.8)
[2023-05-24 06:15] LABS: ANION GAP 15 (5-15); CALCIUM 8.1 mg/dL (8.4-11.0); CARBON DIOXIDE 19 mmol/L (23-29); CHLORIDE 111 mmol/L (98-107); CREATININE 2.06 mg/dL (0.55-1.30); GLUCOSE 228 mg/dL (74-106); POTASSIUM 3.7 mmol/L (3.5-5.1); SODIUM SERUM 145 mmol/L (136-145); UREA NITROGEN, BLOOD 86 mg/dL (8-21)
[2023-05-24] MEDS ORDERED: THEOPHYLLINE ANHYDROUS 200 MG CAP.ER.24H PO SCH (09:00)
[2023-05-24] MEDS: HEPARIN SODIUM,PORCINE 5,000 UNITS/ML VIAL SUBCUT ONE (09:21)
[2023-05-24] MEDS: THEOPHYLLINE ANHYDROUS 80 MG/15 ML UDC PO SCH (09:23)
[2023-05-24 09:25] LABS: BLOOD GAS BASE EXCESS -4.2 mmol/L (-3.0-3.0); BLOOD GAS HCO3 18.5 mmol/L (21.0-27.0); BLOOD GAS PCO2 28.5 mmHg (35.0-45.0); BLOOD GAS PH 7.431 (7.350-7.450); BLOOD GAS PO2 103.8 mmHg (75.0-100.0)
[2023-05-24 09:26] LABS: ALLEN'S TEST POSITIVE (P)
[2023-05-24] MEDS: FUROSEMIDE 40 MG/4 ML VIAL IVP SCH (15:21)
[2023-05-24] MEDS ORDERED: HEPARIN 25,000 UNITS/D5W 250ML 250 ML IV PRN (16:30)
[2023-05-24] MEDS ORDERED: HEPARIN SODIUM,PORCINE 3000 UNITS/0.6 ML BOLUS IVP PRN (16:45)
[2023-05-24] MEDS ORDERED: HEPARIN SODIUM,PORCINE 2000 UNITS/0.4 ML BOLUS IVP PRN (16:45)
[2023-05-24] MEDS ORDERED: *HEPARIN PER PHARMACY XX PRN (17:00)
[2023-05-24] MEDS ORDERED: HEPARIN SODIUM,PORCINE 5,000 UNITS/ML VIAL SUBCUT SCH (21:00)
[2023-05-24] MEDS: HEPARIN 25,000 UNITS in 250 ML PREMIX IV PRN (21:53)
[2023-05-25] VITALS (30 sets, daily range): BP systolic 106–149; PULSE 81–114; RESP 17–31; TEMP 97.6–98.7; O2SAT 91–100
[2023-05-25 05:34] LABS: ANION GAP 17 (5-15); CALCIUM 8.2 mg/dL (8.4-11.0); CARBON DIOXIDE 18 mmol/L (23-29); CHLORIDE 110 mmol/L (98-107); CREATININE 1.81 mg/dL (0.55-1.30); GLUCOSE 279 mg/dL (74-106); SODIUM SERUM 145 mmol/L (136-145); UREA NITROGEN, BLOOD 80 mg/dL (8-21)
[2023-05-25 06:20] LABS: BASOPHILS # (AUTO) 0.1 K/uL (0.0-0.2); BASOPHILS % (AUTO) 0.5 % (0.0-2.0); EOSINOPHILS # (AUTO) 0.1 K/uL (0.0-0.4); EOSINOPHILS % (AUTO) 0.4 % (0.0-4.0); HEMATOCRIT 26.9 % (36-48); HEMOGLOBIN 8.9 g/dL (12.0-16.0); LYMPHOCYTES # (AUTO) 1.5 K/uL (1.0-5.5); LYMPHOCYTES % (AUTO) 7.5 % (20.5-51.5); MEAN CORPUSCULAR HEMOGLOBIN 28 pg (27-31); MEAN CORPUSCULAR HGB CONC 33 % (32-36); MEAN CORPUSCULAR VOLUME 85 fL (79.0-98.0); MONOCYTES # (AUTO) 0.8 K/uL (0.0-1.0); MONOCYTES % (AUTO) 3.8 % (1.7-9.3); NEUTROPHILS # (AUTO) 17.9 K/uL (1.8-7.7); NEUTROPHILS % (AUTO) 87.8 % (40.0-70.0); PLATELET COUNT (AUTO) 215 K/uL (130-430); RED BLOOD CELL COUNT(AUTO) 3.16 MIL/uL (4.2-6.2); RED CELL DISTRIBUTION WIDTH 16.2 % (9.0-15.0); WHITE BLOOD COUNT (AUTO) 20.3 K/uL (4.8-10.8)
[2023-05-25] MEDS: HEPARIN SODIUM,PORCINE 5,000 UNITS/ML VIAL IVP ONE (14:31)
[2023-05-25] MEDS: NITROGLYCERIN 1 INCH (GM) OINT. ONE (17:37)
[2023-05-26] VITALS (31 sets, daily range): BP systolic 108–152; PULSE 86–120; RESP 18–36; TEMP 96.7–98.6; O2SAT 92–99
[2023-05-26 07:19] LABS: BASOPHILS # (AUTO) 0.1 K/uL (0.0-0.2); BASOPHILS % (AUTO) 0.2 % (0.0-2.0); EOSINOPHILS # (AUTO) 0.1 K/uL (0.0-0.4); EOSINOPHILS % (AUTO) 0.3 % (0.0-4.0); HEMATOCRIT 25.6 % (36-48); HEMOGLOBIN 8.2 g/dL (12.0-16.0); LYMPHOCYTES # (AUTO) 1.3 K/uL (1.0-5.5); MEAN CORPUSCULAR HEMOGLOBIN 28 pg (27-31); MEAN CORPUSCULAR HGB CONC 32 % (32-36); MEAN CORPUSCULAR VOLUME 86 fL (79.0-98.0); MONOCYTES % (AUTO) 4.3 % (1.7-9.3); NEUTROPHILS # (AUTO) 19.9 K/uL (1.8-7.7); NEUTROPHILS % (AUTO) 89.2 % (40.0-70.0); PLATELET COUNT (AUTO) 279 K/uL (130-430); RED BLOOD CELL COUNT(AUTO) 2.97 MIL/uL (4.2-6.2); RED CELL DISTRIBUTION WIDTH 16.2 % (9.0-15.0); WHITE BLOOD COUNT (AUTO) 22.4 K/uL (4.8-10.8)
[2023-05-26 07:35] LABS: ALANINE AMINOTRANSFERASE 16 U/L (12-78); ALBUMIN 1.9 g/dL (3.4-4.8); ANION GAP 17 (5-15); ASPARTATE AMINOTRANSFERASE 27 U/L (10-37); CALCIUM 8.3 mg/dL (8.4-11.0); CARBON DIOXIDE 20 mmol/L (23-29); CHLORIDE 111 mmol/L (98-107); GLUCOSE 388 mg/dL (74-106); POTASSIUM 3.9 mmol/L (3.5-5.1); SODIUM SERUM 148 mmol/L (136-145); TOTAL BILIRUBIN 1.2 mg/dL (0.0-1.0); TOTAL PROTEIN, SERUM 5.5 g/dL (6.4-8.3); UREA NITROGEN, BLOOD 74 mg/dL (8-21)
[2023-05-26] MEDS: INSULIN GLARGINE 100 UNITS/ML, 10 ML VIAL SUBCUT SCH ×2 (08:47→20:23)
[2023-05-26] MEDS: FUROSEMIDE 40 MG/4 ML VIAL IVP ONE (11:19)
[2023-05-26] MEDS: PIPERACILLIN/TAZOBACTAM 2.25 GM in D5W 50 ML IV SCH (12:13)
[2023-05-26] MEDS: METOPROLOL SUCCINATE 25 MG TAB.SR.24H (TOPROL XL) PO ONE (14:28)
[2023-05-26] MEDS: PANTOPRAZOLE SODIUM 40 MG/VIAL (PROTONIX) IVP ONE (14:28)
[2023-05-26] MEDS: ASPIRIN 81 MG TAB.CHEW PO ONE (14:29)
[2023-05-26] MEDS: ONDANSETRON HCL 4 MG/2 ML VIAL IVP PRN (17:54)
[2023-05-26] MEDS: FUROSEMIDE 40 MG/4 ML VIAL IVP SCH (20:13)
[2023-05-27] VITALS (22 sets, daily range): BP systolic 108–150; PULSE 90–109; RESP 19–32; TEMP 97.6–98; O2SAT 93–99
[2023-05-27 05:26] LABS: BASOPHILS # (AUTO) 0.1 K/uL (0.0-0.2); BASOPHILS % (AUTO) 0.5 % (0.0-2.0); EOSINOPHILS # (AUTO) 0.1 K/uL (0.0-0.4); EOSINOPHILS % (AUTO) 0.8 % (0.0-4.0); HEMATOCRIT 23.5 % (36-48); HEMOGLOBIN 7.7 g/dL (12.0-16.0); LYMPHOCYTES # (AUTO) 2.2 K/uL (1.0-5.5); LYMPHOCYTES % (AUTO) 11.6 % (20.5-51.5); MEAN CORPUSCULAR HEMOGLOBIN 28 pg (27-31); MEAN CORPUSCULAR HGB CONC 33 % (32-36); MEAN CORPUSCULAR VOLUME 87 fL (79.0-98.0); MONOCYTES # (AUTO) 1.1 K/uL (0.0-1.0); MONOCYTES % (AUTO) 5.9 % (1.7-9.3); NEUTROPHILS # (AUTO) 15.2 K/uL (1.8-7.7); NEUTROPHILS % (AUTO) 81.2 % (40.0-70.0); PLATELET COUNT (AUTO) 319 K/uL (130-430); RED BLOOD CELL COUNT(AUTO) 2.71 MIL/uL (4.2-6.2); RED CELL DISTRIBUTION WIDTH 16.6 % (9.0-15.0); WHITE BLOOD COUNT (AUTO) 18.7 K/uL (4.8-10.8)
[2023-05-27 05:41] LABS: ANION GAP 14 (5-15); CALCIUM 8.5 mg/dL (8.4-11.0); CARBON DIOXIDE 25 mmol/L (23-29); CHLORIDE 113 mmol/L (98-107); CREATININE 1.87 mg/dL (0.55-1.30); GLUCOSE 266 mg/dL (74-106); POTASSIUM 3.3 mmol/L (3.5-5.1); SODIUM SERUM 152 mmol/L (136-145); UREA NITROGEN, BLOOD 70 mg/dL (8-21)
[2023-05-27] MEDS ORDERED: SENNOSIDES 8.6 MG TABLET PO PRN (08:15)
[2023-05-27] MEDS: PANTOPRAZOLE SODIUM 40 MG/VIAL (PROTONIX) IVP SCH (08:25)
[2023-05-27] MEDS: METOPROLOL SUCCINATE 25 MG TAB.SR.24H (TOPROL XL) PO SCH (08:29)
[2023-05-27] MEDS: INSULIN GLARGINE 100 UNITS/ML, 10 ML VIAL SUBCUT SCH (08:48)
[2023-05-27] MEDS: SENNOSIDES 8.6 MG TABLET PO PRN (12:38)
[2023-05-27] MEDS: DOCUSATE SODIUM 100 MG CAPSULE PO PRN (12:38)
[2023-05-27] MEDS: POLYETHYLENE GLYCOL 3350, 17 GM/ POWD.PACK PO ONE (12:39)
[2023-05-27] MEDS: SODIUM PHOSPHATE,MONO-DIBASIC 133 ML ENEMA RC ONE (13:12)
[2023-05-27] MEDS: ASPIRIN 81 MG TAB.CHEW PO ONE (15:08)
[2023-05-27] MEDS: D5W 1,000 ML IV SCH (17:42)
[2023-05-28] VITALS (13 sets, daily range): BP systolic 110–121; PULSE 74–101; RESP 16–25; TEMP 97.9–98.2; O2SAT 93–99
[2023-05-28 05:33] LABS: ERYTHROCYTE SEDIMENTATION RATE 52 MM/HR (0-20)
[2023-05-28 05:47] LABS: BASOPHILS # (AUTO) 0.2 K/uL (0.0-0.2); BASOPHILS % (AUTO) 1.2 % (0.0-2.0); EOSINOPHILS # (AUTO) 0.3 K/uL (0.0-0.4); HEMATOCRIT 22.7 % (36-48); HEMOGLOBIN 7.3 g/dL (12.0-16.0); LYMPHOCYTES # (AUTO) 2.3 K/uL (1.0-5.5); LYMPHOCYTES % (AUTO) 14.9 % (20.5-51.5); MEAN CORPUSCULAR HEMOGLOBIN 28 pg (27-31); MEAN CORPUSCULAR HGB CONC 32 % (32-36); MEAN CORPUSCULAR VOLUME 88 fL (79.0-98.0); MONOCYTES % (AUTO) 6.5 % (1.7-9.3); NEUTROPHILS # (AUTO) 11.5 K/uL (1.8-7.7); NEUTROPHILS % (AUTO) 75.4 % (40.0-70.0); PLATELET COUNT (AUTO) 288 K/uL (130-430); RED BLOOD CELL COUNT(AUTO) 2.58 MIL/uL (4.2-6.2); RED CELL DISTRIBUTION WIDTH 16.9 % (9.0-15.0); WHITE BLOOD COUNT (AUTO) 15.2 K/uL (4.8-10.8)
[2023-05-28 05:57] LABS: ANION GAP 13 (5-15); CALCIUM 8.6 mg/dL (8.4-11.0); CARBON DIOXIDE 25 mmol/L (23-29); CHLORIDE 115 mmol/L (98-107); CREATININE 1.78 mg/dL (0.55-1.30); GLUCOSE 180 mg/dL (74-106); SODIUM SERUM 153 mmol/L (136-145); UREA NITROGEN, BLOOD 58 mg/dL (8-21)
[2023-05-28] MEDS ORDERED: ASPIRIN 81 MG TAB.CHEW PO SCH (09:00)
[2023-05-28] MEDS: POTASSIUM CHLORIDE 20 MEQ TABLET.ER PO ONE (09:15)
[2023-05-28] MEDS: POLYETHYLENE GLYCOL 3350, 17 GM/ POWD.PACK PO SCH (09:16)
[2023-05-28] MEDS: FUROSEMIDE 40 MG/4 ML VIAL ONE (09:19)
[2023-05-28] MEDS ORDERED: HYDROcodone/ACETAMIN 10-325 MG TAB PO PRN (10:15)
[2023-05-28] MEDS: HYDROcodone/ACETAMIN 5-325 MG TAB (NORCO/ VICODIN) PO PRN (13:48)
[2023-05-28] MEDS: CALCIUM CARBONATE 500 MG/ TAB.CHEW PO SCH (13:49)
[2023-05-29] VITALS (11 sets, daily range): BP systolic 128–142; PULSE 80–99; RESP 16–20; TEMP 97–98.2; O2SAT 93–100
[2023-05-29] MEDS: INSULIN GLARGINE 100 UNITS/ML, 10 ML VIAL SUBCUT SCH (02:30)
[2023-05-29 05:38] LABS: BASOPHILS # (AUTO) 0.3 K/uL (0.0-0.2); BASOPHILS % (AUTO) 2.6 % (0.0-2.0); EOSINOPHILS # (AUTO) 0.3 K/uL (0.0-0.4); EOSINOPHILS % (AUTO) 3.2 % (0.0-4.0); HEMATOCRIT 25.9 % (36-48); HEMOGLOBIN 8.4 g/dL (12.0-16.0); LYMPHOCYTES # (AUTO) 1.7 K/uL (1.0-5.5); LYMPHOCYTES % (AUTO) 15.8 % (20.5-51.5); MEAN CORPUSCULAR HEMOGLOBIN 29 pg (27-31); MEAN CORPUSCULAR HGB CONC 32 % (32-36); MEAN CORPUSCULAR VOLUME 90 fL (79.0-98.0); MONOCYTES # (AUTO) 0.6 K/uL (0.0-1.0); MONOCYTES % (AUTO) 5.6 % (1.7-9.3); NEUTROPHILS # (AUTO) 7.9 K/uL (1.8-7.7); NEUTROPHILS % (AUTO) 72.8 % (40.0-70.0); PLATELET COUNT (AUTO) 313 K/uL (130-430); RED BLOOD CELL COUNT(AUTO) 2.89 MIL/uL (4.2-6.2); RED CELL DISTRIBUTION WIDTH 18.4 % (9.0-15.0); WHITE BLOOD COUNT (AUTO) 10.9 K/uL (4.8-10.8)
[2023-05-29 05:48] LABS: ANION GAP 11 (5-15); CALCIUM 8.8 mg/dL (8.4-11.0); CARBON DIOXIDE 27 mmol/L (23-29); CHLORIDE 112 mmol/L (98-107); CREATININE 1.72 mg/dL (0.55-1.30); GLUCOSE 306 mg/dL (74-106); POTASSIUM 3.3 mmol/L (3.5-5.1); SODIUM SERUM 150 mmol/L (136-145); UREA NITROGEN, BLOOD 49 mg/dL (8-21)
[2023-05-29] MEDS ORDERED: POTASSIUM CHLORIDE 20 MEQ TABLET.ER PO ONE (09:00)
[2023-05-29] MEDS: CEFEPIME 2 GM in D5W 100 ML IV SCH (10:56)
[2023-05-29] MEDS: POTASSIUM CHLORIDE 20 MEQ/PKT PACKET PO ONE (10:56)
[2023-05-29] MEDS: SUCRALFATE 1 GM/10 ML UDC GT SCH (12:17)
[2023-05-29] MEDS ORDERED: HYDROcodone/ACETAMIN 10-325 MG TAB PO PRN (21:15)
[2023-05-30] VITALS (13 sets, daily range): BP systolic 107–135; PULSE 91–118; RESP 18–20; TEMP 98–98.4; O2SAT 95–100
[2023-05-30 05:09] LABS: BASOPHILS # (AUTO) 0.2 K/uL (0.0-0.2); BASOPHILS % (AUTO) 2.4 % (0.0-2.0); EOSINOPHILS # (AUTO) 0.3 K/uL (0.0-0.4); EOSINOPHILS % (AUTO) 3.1 % (0.0-4.0); HEMATOCRIT 22.9 % (36-48); HEMOGLOBIN 7.5 g/dL (12.0-16.0); LYMPHOCYTES # (AUTO) 2.1 K/uL (1.0-5.5); LYMPHOCYTES % (AUTO) 21.1 % (20.5-51.5); MEAN CORPUSCULAR HEMOGLOBIN 29 pg (27-31); MEAN CORPUSCULAR HGB CONC 33 % (32-36); MEAN CORPUSCULAR VOLUME 89 fL (79.0-98.0); MONOCYTES # (AUTO) 0.8 K/uL (0.0-1.0); MONOCYTES % (AUTO) 8.3 % (1.7-9.3); NEUTROPHILS # (AUTO) 6.6 K/uL (1.8-7.7); NEUTROPHILS % (AUTO) 65.1 % (40.0-70.0); PLATELET COUNT (AUTO) 273 K/uL (130-430); RED BLOOD CELL COUNT(AUTO) 2.56 MIL/uL (4.2-6.2); RED CELL DISTRIBUTION WIDTH 18.5 % (9.0-15.0); WHITE BLOOD COUNT (AUTO) 10.1 K/uL (4.8-10.8)
[2023-05-30 05:32] LABS: ALANINE AMINOTRANSFERASE 15 U/L (12-78); ANION GAP 10 (5-15); ASPARTATE AMINOTRANSFERASE 32 U/L (10-37); CALCIUM 9.1 mg/dL (8.4-11.0); CARBON DIOXIDE 30 mmol/L (23-29); CHLORIDE 113 mmol/L (98-107); CREATININE 1.56 mg/dL (0.55-1.30); GLUCOSE 203 mg/dL (74-106); SODIUM SERUM 153 mmol/L (136-145); TOTAL BILIRUBIN 0.8 mg/dL (0.0-1.0); TOTAL PROTEIN, SERUM 5.9 g/dL (6.4-8.3); UREA NITROGEN, BLOOD 44 mg/dL (8-21)
[2023-05-30] MEDS: POTASSIUM CHLORIDE 20 MEQ TABLET.ER PO PRN (06:21)
[2023-05-30 08:07] LABS: CEA 6.1 ng/mL (0.0-4.7)
[2023-05-30] MEDS: FUROSEMIDE 40 MG/4 ML VIAL IVP SCH (09:34)
[2023-05-30 10:06] LABS: CA 27.29 62.8 U/mL (0.0-38.6)
[2023-05-30] MEDS: FOLIC ACID 1 MG TABLET PO ONE (16:39)
[2023-05-30] MEDS: LIDOCAINE VISCOUS 2%, 15 ML UDC MM SCH (18:25)
[2023-05-30] MEDS: EPOETIN ALFA-EPBX 3,000 UNITS/ML VIAL SUBCUT SCH (18:28)
[2023-05-30] MEDS: PANTOPRAZOLE SODIUM 40 MG/VIAL (PROTONIX) IVP SCH (21:21)
[2023-05-30] MEDS: NITROGLYCERIN 1 INCH (GM) OINT. TP SCH (21:21)
[2023-05-31] VITALS (9 sets, daily range): BP systolic 122–133; PULSE 74–110; RESP 18–21; TEMP 97.9–99.1; O2SAT 94–98
[2023-05-31] MEDS: DIPHENHYDRAMINE HCL/ZINC ACET 28.3 GM CREAM.GM. TP PRN (01:10)
[2023-05-31 07:39] LABS: BASOPHILS # (AUTO) 0.1 K/uL (0.0-0.2); BASOPHILS % (AUTO) 0.6 % (0.0-2.0); EOSINOPHILS # (AUTO) 0.5 K/uL (0.0-0.4); EOSINOPHILS % (AUTO) 4.2 % (0.0-4.0); HEMATOCRIT 22.6 % (36-48); HEMOGLOBIN 7.3 g/dL (12.0-16.0); LYMPHOCYTES # (AUTO) 3.5 K/uL (1.0-5.5); LYMPHOCYTES % (AUTO) 27.9 % (20.5-51.5); MEAN CORPUSCULAR HEMOGLOBIN 29 pg (27-31); MEAN CORPUSCULAR HGB CONC 32 % (32-36); MEAN CORPUSCULAR VOLUME 90 fL (79.0-98.0); MONOCYTES # (AUTO) 0.9 K/uL (0.0-1.0); MONOCYTES % (AUTO) 7.4 % (1.7-9.3); NEUTROPHILS # (AUTO) 7.5 K/uL (1.8-7.7); NEUTROPHILS % (AUTO) 59.9 % (40.0-70.0); PLATELET COUNT (AUTO) 243 K/uL (130-430); RED BLOOD CELL COUNT(AUTO) 2.52 MIL/uL (4.2-6.2); RED CELL DISTRIBUTION WIDTH 20.9 % (9.0-15.0); WHITE BLOOD COUNT (AUTO) 12.6 K/uL (4.8-10.8)
[2023-05-31] MEDS ORDERED: POTASSIUM CHLORIDE 40 MEQ, LIDOCAINE JECT 2% PF 100 MG 50 MG in NS 250 ML IV PRN (07:45)
[2023-05-31 07:48] LABS: ANION GAP 7 (5-15); CALCIUM 10.1 mg/dL (8.4-11.0); CARBON DIOXIDE 32 mmol/L (23-29); CHLORIDE 112 mmol/L (98-107); CREATININE 1.43 mg/dL (0.55-1.30); GLUCOSE 149 mg/dL (74-106); POTASSIUM 3.9 mmol/L (3.5-5.1); SODIUM SERUM 151 mmol/L (136-145); UREA NITROGEN, BLOOD 41 mg/dL (8-21)
[2023-05-31] MEDS: FOLIC ACID 1 MG TABLET PO SCH (09:30)
[2023-05-31] MEDS: D5W 1,000 ML IV SCH (15:06)
[2023-06-01] VITALS (16 sets, daily range): BP systolic 97–140; PULSE 74–103; RESP 18–20; TEMP 97.6–99; O2SAT 92–99
[2023-06-01 04:59] LABS: BASOPHILS # (AUTO) 0.2 K/uL (0.0-0.2); EOSINOPHILS # (AUTO) 0.6 K/uL (0.0-0.4); RED CELL DISTRIBUTION WIDTH 22.2 % (9.0-15.0)
[2023-06-01 05:02] LABS: INR 1.2 (0.8-1.2); PROTHROMBIN TIME 12.6 SECS (9.5-12.5)
[2023-06-01 05:09] LABS: BASOPHILS % (AUTO) 2.2 % (0.0-2.0); EOSINOPHILS % (AUTO) 5.4 % (0.0-4.0); LYMPHOCYTES % (AUTO) 28.3 % (20.5-51.5); MEAN CORPUSCULAR HEMOGLOBIN 30 pg (27-31); MEAN CORPUSCULAR HGB CONC 32 % (32-36); MEAN CORPUSCULAR VOLUME 92 fL (79.0-98.0); MONOCYTES # (AUTO) 1.4 K/uL (0.0-1.0); MONOCYTES % (AUTO) 12.8 % (1.7-9.3); NEUTROPHILS # (AUTO) 5.4 K/uL (1.8-7.7); NEUTROPHILS % (AUTO) 51.3 % (40.0-70.0); PLATELET COUNT (AUTO) 229 K/uL (130-430); RED BLOOD CELL COUNT(AUTO) 2.13 MIL/uL (4.2-6.2); WHITE BLOOD COUNT (AUTO) 10.6 K/uL (4.8-10.8)
[2023-06-01 05:18] LABS: ANION GAP 6 (5-15); CALCIUM 9.7 mg/dL (8.4-11.0); CARBON DIOXIDE 33 mmol/L (23-29); CHLORIDE 113 mmol/L (98-107); GLUCOSE 151 mg/dL (74-106); POTASSIUM 3.3 mmol/L (3.5-5.1); SODIUM SERUM 152 mmol/L (136-145); UREA NITROGEN, BLOOD 45 mg/dL (8-21)
[2023-06-01 05:23] LABS: HEMATOCRIT 19.6 % (36-48); HEMOGLOBIN 6.3 g/dL (12.0-16.0)
[2023-06-01] MEDS: MIDAZOLAM HCL 5 MG/5 ML VIAL ONE (16:16)
[2023-06-01] MEDS: fentaNYL CITRATE/PF 100 MCG/2 ML AMP ONE (16:16)
[2023-06-01] MEDS: CEFEPIME 2 GM in D5W 100 ML IV SCH (23:19)
[2023-06-02] VITALS (9 sets, daily range): BP systolic 132–160; PULSE 84–122; RESP 16–20; TEMP 97.7–98.6; O2SAT 91–100
[2023-06-02 04:22] LABS: BASOPHILS # (AUTO) 0.2 K/uL (0.0-0.2); BASOPHILS % (AUTO) 1.7 % (0.0-2.0); EOSINOPHILS # (AUTO) 0.6 K/uL (0.0-0.4); EOSINOPHILS % (AUTO) 4.4 % (0.0-4.0); HEMATOCRIT 24.4 % (36-48); LYMPHOCYTES # (AUTO) 1.7 K/uL (1.0-5.5); LYMPHOCYTES % (AUTO) 12.6 % (20.5-51.5); MEAN CORPUSCULAR HEMOGLOBIN 30 pg (27-31); MEAN CORPUSCULAR HGB CONC 33 % (32-36); MEAN CORPUSCULAR VOLUME 91 fL (79.0-98.0); MONOCYTES # (AUTO) 1.5 K/uL (0.0-1.0); MONOCYTES % (AUTO) 10.9 % (1.7-9.3); NEUTROPHILS # (AUTO) 9.5 K/uL (1.8-7.7); NEUTROPHILS % (AUTO) 70.4 % (40.0-70.0); PLATELET COUNT (AUTO) 212 K/uL (130-430); RED BLOOD CELL COUNT(AUTO) 2.69 MIL/uL (4.2-6.2); RED CELL DISTRIBUTION WIDTH 19.1 % (9.0-15.0); WHITE BLOOD COUNT (AUTO) 13.5 K/uL (4.8-10.8)
[2023-06-02 04:27] LABS: ANION GAP 4 (5-15); CALCIUM 9.3 mg/dL (8.4-11.0); CARBON DIOXIDE 35 mmol/L (23-29); CHLORIDE 115 mmol/L (98-107); CREATININE 1.57 mg/dL (0.55-1.30); GLUCOSE 140 mg/dL (74-106); POTASSIUM 3.2 mmol/L (3.5-5.1); SODIUM SERUM 154 mmol/L (136-145); UREA NITROGEN, BLOOD 40 mg/dL (8-21)
[2023-06-02] MEDS: MIDAZOLAM HCL 5 MG/5 ML VIAL ONE (12:02)
[2023-06-02] MEDS: fentaNYL CITRATE/PF 100 MCG/2 ML AMP ONE (12:07)
[2023-06-02] MEDS: FLUCONAZOLE 200 mg/ NS 100 ML IV SCH (15:02)
[2023-06-03] VITALS (10 sets, daily range): BP systolic 139–143; PULSE 88–100; RESP 16–22; TEMP 97.3–98.1; O2SAT 95–100
[2023-06-03 05:28] LABS: BASOPHILS # (AUTO) 0.2 K/uL (0.0-0.2); BASOPHILS % (AUTO) 1.4 % (0.0-2.0); EOSINOPHILS # (AUTO) 0.5 K/uL (0.0-0.4); EOSINOPHILS % (AUTO) 4.5 % (0.0-4.0); HEMATOCRIT 23.1 % (36-48); HEMOGLOBIN 7.5 g/dL (12.0-16.0); LYMPHOCYTES # (AUTO) 1.9 K/uL (1.0-5.5); LYMPHOCYTES % (AUTO) 15.4 % (20.5-51.5); MEAN CORPUSCULAR HEMOGLOBIN 30 pg (27-31); MEAN CORPUSCULAR HGB CONC 32 % (32-36); MEAN CORPUSCULAR VOLUME 93 fL (79.0-98.0); MONOCYTES # (AUTO) 1.2 K/uL (0.0-1.0); MONOCYTES % (AUTO) 9.6 % (1.7-9.3); NEUTROPHILS # (AUTO) 8.3 K/uL (1.8-7.7); NEUTROPHILS % (AUTO) 69.1 % (40.0-70.0); PLATELET COUNT (AUTO) 147 K/uL (130-430); RED CELL DISTRIBUTION WIDTH 20.5 % (9.0-15.0); WHITE BLOOD COUNT (AUTO) 12.1 K/uL (4.8-10.8)
[2023-06-03 05:44] LABS: ALANINE AMINOTRANSFERASE 11 U/L (12-78); ALBUMIN 1.7 g/dL (3.4-4.8); ANION GAP 5 (5-15); ASPARTATE AMINOTRANSFERASE 22 U/L (10-37); CALCIUM 8.7 mg/dL (8.4-11.0); CARBON DIOXIDE 32 mmol/L (23-29); CHLORIDE 114 mmol/L (98-107); CREATININE 1.52 mg/dL (0.55-1.30); GLUCOSE 183 mg/dL (74-106); SODIUM SERUM 151 mmol/L (136-145); TOTAL BILIRUBIN 0.7 mg/dL (0.0-1.0); TOTAL PROTEIN, SERUM 5.3 g/dL (6.4-8.3); UREA NITROGEN, BLOOD 35 mg/dL (8-21)
[2023-06-03] MEDS ORDERED: APIXABAN 2.5 MG TABLET PO SCH (08:00)
[2023-06-03] MEDS: APIXABAN 2.5 MG TABLET PO SCH (09:01)
== END 2023-06-04 00:30 | DRG 870 ==
LOC: SED 15:21 → STU 21:34 → SIC 05-16 05:45 → STU 05-28 08:34
PROVIDERS: ADMIT Family Medicine; ATTEND Family Medicine
PROC: 5A1955Z Respiratory Ventilation, Greater than 96 Consecutive Hours (ICD-10-PCS; principal; 2023-05-17)
PROC: 0BH17EZ Insertion of Endotracheal Airway into Trachea, Via Natural or Artificial Opening (ICD-10-PCS; 2023-05-17)
PROC: 0T9330Z Drainage of Right Kidney Pelvis with Drainage Device, Percutaneous Approach (ICD-10-PCS; 2023-05-18)
PROC: 5A09357 Assistance with Respiratory Ventilation, Less than 24 Consecutive Hours, Continuous Positive Airway Pressure (ICD-10-PCS; 2023-05-19)
PROC: 5A09357 Assistance with Respiratory Ventilation, Less than 24 Consecutive Hours, Continuous Positive Airway Pressure (ICD-10-PCS; 2023-05-25)
PROC: 5A09357 Assistance with Respiratory Ventilation, Less than 24 Consecutive Hours, Continuous Positive Airway Pressure (ICD-10-PCS; 2023-05-26)
PROC: 5A09357 Assistance with Respiratory Ventilation, Less than 24 Consecutive Hours, Continuous Positive Airway Pressure (ICD-10-PCS; 2023-05-27)
PROC: 0DB78ZX Excision of Stomach, Pylorus, Via Natural or Artificial Opening Endoscopic, Diagnostic (ICD-10-PCS; 2023-06-01)
PROC: 30233N1 Transfusion of Nonautologous Red Blood Cells into Peripheral Vein, Percutaneous Approach (ICD-10-PCS; 2023-06-01)
PROC: 02HV33Z Insertion of Infusion Device into Superior Vena Cava, Percutaneous Approach (ICD-10-PCS; 2023-06-01)
PROC: B548ZZA Ultrasonography of Superior Vena Cava, Guidance (ICD-10-PCS; 2023-06-01)
PROC: 0T9330Z Drainage of Right Kidney Pelvis with Drainage Device, Percutaneous Approach (ICD-10-PCS; 2023-06-02)
DX: A41.51 Sepsis due to Escherichia coli [E. coli] (principal); N17.0 Acute kidney failure with tubular necrosis; E43 Unspecified severe protein-calorie malnutrition; R65.21 Severe sepsis with septic shock; G93.41 Metabolic encephalopathy; J96.01 Acute respiratory failure with hypoxia; I50.33 Acute on chronic diastolic (congestive) heart failure; K22.10 Ulcer of esophagus without bleeding; E11.52 Type 2 diabetes mellitus with diabetic peripheral angiopathy with gangrene; D68.9 Coagulation defect, unspecified; N13.6 Pyonephrosis; I82.412 Acute embolism and thrombosis of left femoral vein; I82.432 Acute embolism and thrombosis of left popliteal vein; D69.6 Thrombocytopenia, unspecified; E78.5 Hyperlipidemia, unspecified; Z20.822 Contact with and (suspected) exposure to COVID-19; I11.0 Hypertensive heart disease with heart failure; Z96.652 Presence of left artificial knee joint; G30.9 Alzheimer's disease, unspecified; I50.9 Heart failure, unspecified; E86.0 Dehydration; K44.9 Diaphragmatic hernia without obstruction or gangrene; B96.20 Unspecified Escherichia coli [E. coli] as the cause of diseases classified elsewhere; K52.9 Noninfective gastroenteritis and colitis, unspecified; Z68.30 Body mass index [BMI] 30.0-30.9, adult; F02.80 Dementia in other diseases classified elsewhere, unspecified severity, without behavioral disturbance, psychotic disturbance, mood disturbance, and anxiety; D63.1 Anemia in chronic kidney disease; Z88.5 Allergy status to narcotic agent; Z79.4 Long term (current) use of insulin; Z87.442 Personal history of urinary calculi; Z90.710 Acquired absence of both cervix and uterus; Z95.2 Presence of prosthetic heart valve; Z88.1 Allergy status to other antibiotic agents
CPT/HCPCS: 36415; 36600; 43239; 50432; 70450-TC; 71045; 71250-TC; 74018; 76770; 76942; 77012; 80048; 80053; 80061; 80076; 81000; 81001; 81015; 82272; 82378; 82803; 82948; 83037; 83540; 83550; 83605; 83735; 83880; 84443; 84484; 85007; 85025; 85027; 85384; 85610; 85651; 85730; 86022; 86300; 86301; 86304; 86886; 86900; 86901; 86920; 87040; 87070; 87081; 87086; 87205; 88305; 88312; 88313; 92610-GN; 93005; 93306; 93923; 93970; 94002; 94003; 94640; 94660; 94760; 96365; 96375; 97110-GP; 97112-GP; 97116-GP; 97530-GP; 99285; C1729; C1750; C1758; C9113; G0378; J0692; J0696; J1200; J1450; J1644; J1815; J1940; J2001; J2060; J2185; J2250; J2405; J2543; J2704; J2765; J3010; J3370; J3490; J7060; P9021; P9041; P9046; Q5106; Q9967